=== PATIENT | male | born 1950 | race Caucasian/White ===

== ENCOUNTER 2018-04-21 09:50 | Emergency (ER) | payer MEDICARE, OTHER ==
[2018-04-21] MEDS ORDERED: PIPERACILLIN/TAZOBACTAM 3.375 GM VIAL IV ONE ×2 (10:26→13:15)
[2018-04-21] MEDS ORDERED: DIPH/PERTUSS(ACELL)/TETANUS VAC/PF 0.5 ML SYR (>=10YO) IM ONE ×2 (10:27→13:15)
[2018-04-21 11:51] LABS: ABSOLUTE BASOPHILS # (AUTO) 0.1 10^3/uL (0.0-0.2); ABSOLUTE EOSINOPHILS # (AUTO) 0.1 10^3/uL (0.0-0.6); ABSOLUTE LYMPHOCYTES (AUTO) 1.7 10^3/uL (0.5-4.7); ABSOLUTE MONOCYTES (AUTO) 1.2 10^3/uL (0.1-1.4); ABSOLUTE NEUT (AUTO) 8.6 10^3/uL (1.7-8.2); BASOPHILS % (AUTO) 0.5 % (0-2); EOSINOPHILS % (AUTO) 1.2 % (0-6); HEMATOCRIT 40.9 % (37.9-51.0); HEMOGLOBIN 13.7 g/dL (13.5-17.0); LYMPHOCYTES % (AUTO) 14.9 % (13-45); MEAN CORPUSCULAR HEMOGLOBIN 29.8 pg (27.0-33.4); MEAN CORPUSCULAR HGB CONC 33.6 g/dL (32.0-36.0); MEAN CORPUSCULAR VOLUME 89 fl (80-97); PLATELET COUNT 230 10^3/uL (150-450); RED BLOOD COUNT 4.62 10^6/uL (4.35-5.55); RED CELL DISTRIBUTION WIDTH 13.7 % (11.5-14.0); SEGMENTED NEUTROPHILS % (AUTO) 73.4 % (42-78); TOTAL CELLS COUNTED % (AUTO) 100 %; WHITE BLOOD COUNT 11.7 10^3/uL (4.0-10.5)
[2018-04-21] MEDS ORDERED: VANCOMYCIN HCL INJ 1000 MG VIAL IV ONE (13:26)
--- NOTE | 2018-04-21 13:28 | ER Document Report ---
ED General - General Chief Complaint: Wound Infection Stated Complaint: FINGER LACERATION Time Seen by Provider: 04/21/18 10:25 TRAVEL OUTSIDE OF THE [place] IN LAST 30 DAYS: No - HPI Notes: Patient is a 68-year-old male that presents to the emergency department for chief complaint of left hand infection. Patient states 5 days ago he was his dogs and cut his left hand. He is not sure if he got caught on a dog's tooth or the collar. He has not had any issues until last night when he noticed some swelling on his left hand. Today he noticed redness around the area. He denies any drainage from the wound. He is a diabetic and states his blood glucose has been running in the 200s. He denies any fevers or chills. He is unsure of his last tetanus vaccination. Past Medical History: Diabetes Past Surgical History: Reviewed in chart Social History: Reviewed in chart Family History: Reviewed and noncontributory for presenting illness Allergies: Reviewed, see documented allergy list. REVIEW OF SYSTEMS: CONSTITUTIONAL : No fever No chills No diaphoresis No recent illness EENT: No vision changes No congestion No sore throat CARDIOVASCULAR: No chest pain No palpitations RESPIRATORY: No shortness of breath No cough No difficulty breathing GASTROINTESTINAL: No abdominal pain No nausea No vomiting No diarrhea GENITOURINARY: No dysuria No hematuria No difficulty urinating MUSCULOSKELETAL: No back pain No leg pain No arm pain SKIN: No rashes Hand laceration LYMPHATIC: No swollen, enlarged glands. NEUROLOGICAL: No lightheadedness No headache No weakness No paresthesias PSYCHIATRIC: No anxiety No depression PHYSICAL EXAMINATION: Vital signs reviewed, nursing noted reviewed. GENERAL: Well-appearing, well-nourished and in no acute distress. HEAD: Atraumatic, normocephalic. EYES: Eyes appear normal, extraocular movements intact, sclera anicteric, conjunctiva are normal. ENT: nares patent, oropharynx clear without exudates. Moist mucous membranes. NECK: Normal range of motion, supple without lymphadenopathy LUNGS: Breath sounds clear to auscultation bilaterally and equal. No wheezes rales or rhonchi. HEART: Regular rate and rhythm without murmurs ABDOMEN: Soft, nontender, normoactive bowel sounds. No rebound, guarding, or rigidity. No masses appreciated. EXTREMITIES: Nontender, good range of motion, no pitting or edema. NEUROLOGICAL: No focal neurological deficits. Moves all extremities spontaneously Motor and sensory grossly intact on exam. PSYCH: Normal mood, normal affect. SKIN: Warm, Dry, normal turgor. Full-thickness angular laceration on the palmar surface of the proximal third digit on the left hand measuring about 2.5 cm in total length. Some wound gapping, no active bleeding. Erythema and edema to left hand with no lymphatic streaking to left forearm - Related Data Allergies/Adverse Reactions: ibuprofen Adverse Reaction (Verified 04/21/18 10:26) Past Medical History - Social History Smoking Status: Never Smoker Chew tobacco use (# tins/day): No Frequency of alcohol use: None Drug Abuse: None Family History: Reviewed & Not Pertinent Patient has suicidal ideation: No Patient has homicidal ideation: No Renal/ Medical History: Denies: Hx Peritoneal Dialysis Physical Exam - Vital signs Vitals: Temp Pulse Resp BP Pulse Ox 98.1 F 85 16 114/65 97 04/21/18 09:58 04/21/18 09:58 04/21/18 09:58 04/21/18 09:58 04/21/18 09:58 Course - Re-evaluation Re-evalutation: 04/21/18 13:32 Vitals reviewed. Nursing notes reviewed. Patient is not meeting sepsis criteria. He received a dose of Zosyn in the emergency room for his left hand infection. He has no signs of flexor tenosynovitis. The laceration occurred 5 days ago and although there is some wound gapping there is no active bleeding and stitches are not indicated. the area of erythema and edema is localized to around his third and fourth MCP joint and there is no lymphatic streaking. He will be started on Augmentin at home for his left hand infection. He was counseled on tight glucose control while healing from the infection. He was counseled on wound care. He will return to the emergency room for any increased redness, swelling, fevers, chills or lymphatic streaking. He will follow with his primary care in the next few days for close wound reevaluation. Discharged home in stable condition. Laboratory 04/21/18 04/21/18 11:07 11:07 WBC 11.7 H RBC 4.62 Hgb 13.7 Hct 40.9 MCV 89 MCH 29.8 MCHC 33.6 RDW 13.7 Plt Count 230 Seg Neutrophils % 73.4 Lymphocytes % 14.9 Monocytes % 10.0 Eosinophils % 1.2 Basophils % 0.5 Absolute Neutrophils 8.6 H Absolute Lymphocytes 1.7 Absolute Monocytes 1.2 Absolute Eosinophils 0.1 Absolute Basophils 0.1 Sodium Cancelled Potassium Cancelled Chloride Cancelled Carbon Dioxide Cancelled Anion Gap Cancelled BUN Cancelled Creatinine Cancelled Est GFR ( Amer) Cancelled Est GFR (Non-Af Amer) Cancelled Glucose Cancelled Calcium Cancelled Total Bilirubin Cancelled Direct Bilirubin Cancelled Neonat Total Bilirubin Cancelled Neonat Direct Bilirubin Cancelled Neonat Indirect Bili Cancelled AST Cancelled ALT Cancelled Alkaline Phosphatase Cancelled Total Protein Cancelled Albumin Cancelled 04/21/18 13:33 - Vital Signs Vital signs: Temp Pulse Resp BP Pulse Ox 98.1 F 85 18 114/65 97 04/21/18 09:58 04/21/18 09:58 04/21/18 10:16 04/21/18 09:58 04/21/18 09:58 - Laboratory Result Diagrams: 04/21/18 11:07 04/21/18 11:07 Laboratory results interpreted by me: 04/21/18 11:07 WBC 11.7 H Absolute Neutrophils 8.6 H Discharge - Discharge Clinical Impression: Laceration of hand with infection Qualifiers: Encounter type: initial encounter Laterality: left Qualified Code(s): S61.412A - Laceration without foreign body of left hand, initial encounter Condition: Stable Disposition: HOME, SELF-CARE Instructions: Antibiotic Ointment Protection (OM), Laceration Care (OM), Soap Cleansing (OM), Tetanus Immunization Given ([facility]) Additional Instructions: Please return to the emergency department if you have any worsening, or concern of your symptoms. Please return to the emergency department if you develop chest pain, difficulty breathing, severe abdominal pain, or ongoing vomiting. Please follow-up with your primary care physician in 2-3 days and any other recommended physicians. If prescribed, take all medications as directed. If you have any questions or concerns do not hesitate to return the emergency department for evaluation. Monitor your diet closely to improve your glucose while you are healing from your infection. If the area on your left hand becomes more red, swollen or has increased pain and drainage return to the emergency room. Prescriptions: Amox Tr/Potassium Clavulanate [Augmentin 839-125 Tablet] 1 tab PO BID 10 Days tablet Referrals: SYLVIA REYEZ MD [Primary Care Provider] - Follow up in 3-5 days
[2018-04-21 13:49] LABS: ALANINE AMINOTRANSFERASE 33 U/L (21-72); ALBUMIN 4.9 g/dL (3.5-5.0); ALKALINE PHOSPHATASE 89 U/L (38-126); ANION GAP 15 (5-19); ASPARTATE AMINO TRANSFERASE 30 U/L (17-59); BILIRUBIN,DIRECT 0.1 mg/dL (0.0-0.4); BILIRUBIN,TOTAL 0.7 mg/dL (0.2-1.3); BLOOD UREA NITROGEN 10 mg/dL (7-20); CALCIUM 10.4 mg/dL (8.4-10.2); CARBON DIOXIDE 28 mmol/L (22-30); CHLORIDE 98 mmol/L (98-107); GLUCOSE 167 mg/dL (75-110); POTASSIUM 4.5 mmol/L (3.6-5.0); SODIUM 140.7 mmol/L (137-145); TOTAL PROTEIN 7.8 g/dL (6.3-8.2)
[2018-04-21 14:41] VITALS: BP 121/69
== END 2018-04-21 14:25 | disposition home or self-care (01) ==
LOC: ER 09:50
DX: S61.412A Laceration without foreign body of left hand, initial encounter (principal); M79.89 Other specified soft tissue disorders; W54.0XXA Bitten by dog, initial encounter
CPT/HCPCS: 99283; 90471; 96374; 36415; 85025; 80053; 90715; J2543

== ENCOUNTER 2018-06-20 22:55 | Emergency (ER) | payer MEDICARE ==
--- NOTE | 2018-06-21 01:53 | RADIOLOGY REPORT (SQ) ---
EXAM DESCRIPTION: XR ABDOMEN SUPINE AND ERECT WITH CHEST (ABD ACUTE SERIES) COMPLETED DATE/TME: 06/20/2018 00:00 CLINICAL HISTORY: 68 years Male, abd/constipation Comparison: None. NUMBER OF VIEWS/TECHNIQUE: 3 LIMITATIONS: None. FINDINGS: Intestinal gas pattern is within normal limits. Paucity of bowel gas. No suspicious calcification. Grossly intact skeletal structures. No acute cardiopulmonary findings. IMPRESSION: No acute findings.
--- NOTE | 2018-06-21 02:54 | ER Document Report ---
ED General - General Chief Complaint: Chest Pain Stated Complaint: CHEST PAIN/LEFT SIDE PAIN Time Seen by Provider: 06/21/18 02:52 Primary Care Provider: SYLVIA REYEZ MD [Primary Care Provider] - Follow up as needed Notes: Patient is a 68-year-old male presents with complaint of abdominal pain. Initially says it is mostly in the suprapubic region and then he says later is also on the left side of his abdomen. He says is been there for 3 weeks. He states that very few bowel movements he feels is very constipated. Says he feels very nauseous. He has not been vomiting but has been burping a lot. Chief complaint mention something about chest pain however the patient says he does not actually have pain in his chest. Says all in the abdomen itself. Does have history of diabetes. He does have history of partial colon resection due to previous infection and perforation. He denies any blood in his stool. He said he did go to the drugstore today and bought a clear bottle of a laxative. He said he drank the whole thing. Since then he has felt worse. TRAVEL OUTSIDE OF THE [place] IN LAST 30 DAYS: No - Related Data Allergies/Adverse Reactions: ibuprofen Adverse Reaction (Verified 04/21/18 10:26) Past Medical History - Social History Smoking Status: Unknown if Ever Smoked Frequency of alcohol use: None Drug Abuse: None Family History: Reviewed & Not Pertinent Renal/ Medical History: Denies: Hx Peritoneal Dialysis Review of Systems - Review of Systems Notes: My Normal Review Basic REVIEW OF SYSTEMS: CONSTITUTIONAL : Denies fever, chills, or sweats. Denies recent illness. EENT: Denies eye, ear, throat, or mouth pain or symptoms. Denies nasal or sinus congestion. CARDIOVASCULAR: Denies chest pain. RESPIRATORY: Denies cough, cold, or chest congestion. Denies shortness of al th, difficulty breathing, or wheezing. GASTROINTESTINAL: No pain. Nausea. GENITOURINARY: Patient feels as if he cannot fully empty his bladder. He said this is a chronic problem he has been dealing with for years. MUSCULOSKELETAL: Denies neck or back pain or joint pain or swelling. SKIN: Denies rash or skin lesions. NEUROLOGICAL: Denies altered mental status or loss of consciousness. Denies headache. Denies weakness or paralysis or loss of use of either side. Denies problems with gait or speech. Denies sensory or motor loss. ALL OTHER SYSTEMS REVIEWED AND NEGATIVE. Physical Exam - Vital signs Vitals: Temp Pulse Resp BP Pulse Ox 97.8 F 86 22 H 129/74 H 100 06/20/18 23:47 06/20/18 23:47 06/20/18 23:47 06/20/18 23:47 06/20/18 23:47 - Notes Notes: General Appearance: Well nourished, alert, cooperative, no acute distress, moderate obvious discomfort. Anxious appearing. Vitals: reviewed, See vital signs table. Head: no swelling or tenderness to the head Eyes: PERRL, EOMI, Conjuctiva clear Mouth: No decreasd moisture Lungs: No wheezing, No rales, No rhonci, No accessory muscle use, good air exchange bilaterally. Heart: Normal rate, Regular rythm, No murmur, no rub Abdomen: Normal BS, soft, No rigidity, tenderness palpation in the suprapubic re gion. No tenderness palpation of right-sided abdomen. Some tenderness in the left upper quadrant. Abdomen is soft. It is little bit distended. Extremities: strength 5/5 in all extremities, good pulses in all extremities, no swelling or tenderness in the extremities, no edema. Skin: warm, dry, appropriate color, no rash Neuro: speech clear, oriented x 3, normal affect, responds appropriately to questions. Course - Re-evaluation Re-evalutation: 06/21/18 06:05 Patient did get an enema. He did have a large bowel movement. He says his abdominal distention is gone down quite a bit however he says he still feels nauseous and does not feel back to normal. He still has some pain in left upper quadrant. Patient's laboratory evaluation is completely unremarkable however the patient still appears very anxious and says that he does not feel 100% back to normal. Being his age and previous surgical history thinks prep to go forth CT scan to make sure it is not anything more acutely life-threatening be going on. Abdomen remains soft. There is no peritoneal signs. 06/21/18 07:15 CT scan has been performed. Radiologist has not read it. Patient does not want to wait for radiologist. He says he wants to go home. I informed him that if the CAT scan shows something bad then he should be here. I informed him that th e 10 minutes for scan results to come back. Patient says he wants to sign out AGAINST MEDICAL ADVICE. I will still give him his prescriptions and discharge instructions. I informed him that I want what is best for him. I informed him I would call him with the CT scan results. I informed him the importance of following up with his primary care doctor on Saturday. I told both him and his that he should return to ER immediately if he worsens in any way. Dictation of this chart was performed using voice recognition software; therefore, there may be some unintended grammatical errors. - Vital Signs Vital signs: Temp Pulse Resp BP Pulse Ox 97.8 F 86 22 H 129/74 H 100 06/20/18 23:47 06/20/18 23:47 06/20/18 23:47 06/20/18 23:47 06/20/18 23:47 - Laboratory Result Diagrams: 06/21/18 04:16 06/21/18 04:16 Laboratory results interpreted by me: 06/21/18 06/21/18 04:16 06:13 Sodium 134.6 L Chloride 97 L Glucose 198 H Urine Glucose (UA) >=500 H Urine Ketones 80 H - EKG Interpretation by Me Additional EKG results interpreted by me: 06/21/18 02:53 EKG is reviewed and interpreted by me. EKG shows sinus rhythm with a rate of [address] segment elevation. No ST segment depression. Patient is a small Q waves in leads I and aVL. RI interval, QRS duration, QT intervals are within normal range. No old EKG available for comparison. 06/21/18 02:54 Discharge - Discharge Clinical Impression: Nausea Abdominal pain Qualifiers: Abdominal location: unspecified location Qualified Code(s): R10.9 - Unspecified abdominal pain Condition: Stable Disposition: AGAINST MEDICAL ADVICE Additional Instructions: That cause of your abdominal pain is not 100% clear. It could be related to constipation however it is difficult to tell this just based on workup at this time. You are requesting to leave against medical advice. We do not recommend against this as we want to wait for the results of CT scan. Despite this will still call you with results. I want you to have a low threshold to return to ER immediately if you have worsening pain, vomiting, fevers, or feel that you are worsening in any way. Please drink clear liquids. Please follow-up closely with your doctor on Saturday. Prescriptions: Dicyclomine HCl [Bentyl 20 mg Tablet] 20 mg PO QID #20 tablet Docusate Sodium [Colace] 100 mg PO BID #14 capsule Ondansetron [Zofran Odt 4 mg Tablet] 1 tab PO Q4H PRN #15 tab.rapdis PRN Reason: For Nausea/Vomiting Referrals: SYLVIA REYEZ MD [Primary Care Provider] - Follow up as needed
[2018-06-21] MEDS ORDERED: NORMAL SALINE 500 ML IV ONE ×2 (03:57→05:54)
[2018-06-21] MEDS ORDERED: DICYCLOMINE HCL INJ 20 MG/2 ML AMPULE IM ONE (03:57)
[2018-06-21] MEDS ORDERED: MINERAL OIL 30 ML UDCUP PR ONE (03:58)
[2018-06-21 04:31] LABS: ABSOLUTE LYMPHOCYTES (AUTO) 0.9 10^3/uL (0.5-4.7); ABSOLUTE MONOCYTES (AUTO) 0.7 10^3/uL (0.1-1.4); ABSOLUTE NEUT (AUTO) 4.8 10^3/uL (1.7-8.2); BASOPHILS % (AUTO) 0.6 % (0-2); EOSINOPHILS % (AUTO) 0.1 % (0-6); HEMATOCRIT 40.5 % (37.9-51.0); HEMOGLOBIN 14.1 g/dL (13.5-17.0); LYMPHOCYTES % (AUTO) 14.4 % (13-45); MEAN CORPUSCULAR HEMOGLOBIN 30.5 pg (27.0-33.4); MEAN CORPUSCULAR HGB CONC 34.8 g/dL (32.0-36.0); MEAN CORPUSCULAR VOLUME 87 fl (80-97); PLATELET COUNT 191 10^3/uL (150-450); RED BLOOD COUNT 4.64 10^6/uL (4.35-5.55); RED CELL DISTRIBUTION WIDTH 13.6 % (11.5-14.0); SEGMENTED NEUTROPHILS % (AUTO) 73.9 % (42-78); TOTAL CELLS COUNTED % (AUTO) 100 %; WHITE BLOOD COUNT 6.4 10^3/uL (4.0-10.5)
[2018-06-21 04:56] LABS: ALANINE AMINOTRANSFERASE 51 U/L (21-72); ALBUMIN 4.8 g/dL (3.5-5.0); ALKALINE PHOSPHATASE 90 U/L (38-126); ANION GAP 15 (5-19); ASPARTATE AMINO TRANSFERASE 59 U/L (17-59); BILIRUBIN,DIRECT 0.4 mg/dL (0.0-0.4); BILIRUBIN,TOTAL 1.2 mg/dL (0.2-1.3); BLOOD UREA NITROGEN 13 mg/dL (7-20); CALCIUM 9.8 mg/dL (8.4-10.2); CARBON DIOXIDE 23 mmol/L (22-30); CHLORIDE 97 mmol/L (98-107); GLUCOSE 198 mg/dL (75-110); LIPASE 131.1 U/L (23-300); POTASSIUM 4.5 mmol/L (3.6-5.0); SODIUM 134.6 mmol/L (137-145); TOTAL PROTEIN 7.4 g/dL (6.3-8.2)
[2018-06-21] MEDS ORDERED: PROMETHAZINE HCL INJ 25 MG/1 ML VIAL IM ONE (05:54)
[2018-06-21 06:26] LABS: APPEARANCE,URINE CLEAR; BILIRUBIN,URINE NEGATIVE (NEGATIVE); COLOR,URINE YELLOW; GLUCOSE, URINE >=500 mg/dL (NEGATIVE); KETONES,URINE 80 mg/dL (NEGATIVE); LEUKOCYTE ESTERASE,URINE NEGATIVE (NEGATIVE); NITRITE,URINE NEGATIVE (NEGATIVE); PROTEIN,URINE NEGATIVE (NEGATIVE); UROBILINOGEN,URINE NEGATIVE mg/dL (<2.0)
[2018-06-21 07:27] VITALS: BP 131/71
--- NOTE | 2018-06-21 07:28 | RADIOLOGY REPORT (SQ) ---
EXAM DESCRIPTION: CT ABDOMEN PELVIS WITH IV CONTRAST COMPLETED DATE/TME: 06/21/2018 05:53 CLINICAL HISTORY: 68 years Male, left sided abdominal pain Comparison: None. Technique: IV contrast. Coronal and sagittal reformat. This exam was performed according to our departmental dose-optimization program, which includes automated exposure control, adjustment of the mA and/or kV according to patient size and/or use of iterative reconstruction technique. [facility]: Dose Right [facility]: CareDose [facility]: Dose Right [facility]: Teradose 4D [facility]: Bait[place]hi LIMITATIONS: None Findings: No ascites. Atherosclerotic vascular disease. Suture at the sigmoid consistent with reported history of partial colon resection. Bilateral perinephric fat stranding, nonspecific. Renal scar/atrophy. Small fluid retention at the transverse colon. Colonic diverticulosis.Normal appendix. No gross evidence of gallbladder inflammation or hepatobiliary obstruction. No bowel obstruction. No hydronephrosis or hydroureter. No renal/ureteral stone. Inferior thorax, liver, gallbladder, pancreas, spleen, adrenals, renal system, gastrointestinal tract, pelvic organs, lymphatics, vasculature, and musculoskeleton appear otherwise unremarkable. IMPRESSION: No acute findings.
--- NOTE | 2018-06-21 08:50 | EKG REPORT ---
SEVERITY:- ABNORMAL ECG - SINUS RHYTHM LEFT ANTERIOR FASCICULAR BLOCK PROBABLE ANTEROSEPTAL INFARCT, OLD : Confirmed by: Gautam Peck MD 21-Jun-2018 08:50:08
== END 2018-06-21 07:24 | disposition left against medical advice (07) ==
LOC: ER 22:55
DX: R11.0 Nausea (principal); R07.9 Chest pain, unspecified; R10.9 Unspecified abdominal pain
CPT/HCPCS: 93005; 99284; 36415; 83690; 85025; 80053; 81001; 84484; 74022; 74177; 93010; J0500; J3490; J2550; J7040

== ENCOUNTER 2018-07-26 23:03 | Emergency (ER) | payer MEDICARE ==
[2018-07-26] MEDS ORDERED: ONDANSETRON HCL INJ/PF 4 MG/2 ML SDV IV ONE (23:55)
[2018-07-26] MEDS ORDERED: NORMAL SALINE 1000 ML 1,000 ML IV ONE (23:56)
[2018-07-27 00:03] LABS: ABSOLUTE EOSINOPHILS # (AUTO) 0.1 10^3/uL (0.0-0.6); ABSOLUTE LYMPHOCYTES (AUTO) 1.9 10^3/uL (0.5-4.7); ABSOLUTE MONOCYTES (AUTO) 0.9 10^3/uL (0.1-1.4); ABSOLUTE NEUT (AUTO) 7.3 10^3/uL (1.7-8.2); BASOPHILS % (AUTO) 0.4 % (0-2); EOSINOPHILS % (AUTO) 0.9 % (0-6); HEMATOCRIT 41.9 % (37.9-51.0); HEMOGLOBIN 14.6 g/dL (13.5-17.0); LYMPHOCYTES % (AUTO) 18.2 % (13-45); MEAN CORPUSCULAR HEMOGLOBIN 30.3 pg (27.0-33.4); MEAN CORPUSCULAR HGB CONC 34.8 g/dL (32.0-36.0); MEAN CORPUSCULAR VOLUME 87 fl (80-97); PLATELET COUNT 224 10^3/uL (150-450); RED BLOOD COUNT 4.81 10^6/uL (4.35-5.55); RED CELL DISTRIBUTION WIDTH 13.9 % (11.5-14.0); SEGMENTED NEUTROPHILS % (AUTO) 71.5 % (42-78); TOTAL CELLS COUNTED % (AUTO) 100 %; WHITE BLOOD COUNT 10.2 10^3/uL (4.0-10.5)
[2018-07-27 00:15] LABS: ALANINE AMINOTRANSFERASE 47 U/L (21-72); ALKALINE PHOSPHATASE 128 U/L (38-126); ANION GAP 15 (5-19); ASPARTATE AMINO TRANSFERASE 41 U/L (17-59); BILIRUBIN,DIRECT 0.2 mg/dL (0.0-0.4); BILIRUBIN,TOTAL 0.7 mg/dL (0.2-1.3); BLOOD UREA NITROGEN 8 mg/dL (7-20); CALCIUM 10.5 mg/dL (8.4-10.2); CARBON DIOXIDE 22 mmol/L (22-30); CHLORIDE 99 mmol/L (98-107); GLUCOSE 176 mg/dL (75-110); LIPASE 169.2 U/L (23-300); POTASSIUM 3.6 mmol/L (3.6-5.0); SODIUM 136.2 mmol/L (137-145); TOTAL PROTEIN 7.9 g/dL (6.3-8.2)
[2018-07-27] MEDS ORDERED: LORAZEPAM INJ 2 MG/1 ML VIAL IV ONE (00:15)
[2018-07-27] MEDS ORDERED: FAMOTIDINE INJ/PF 20 MG/2 ML SDV IV ONE (00:15)
[2018-07-27] MEDS ORDERED: METOCLOPRAMIDE HCL ORAL SOLN 10 MG/10 ML UDCUP PO ONE (00:18)
[2018-07-27] MEDS ORDERED: LIDOCAINE 2% VISCOUS SOLN 20 ML UDCUP PO ONE (00:18)
[2018-07-27] MEDS ORDERED: MAG HYDROX/AL HYDROX/SIMETH SUSP 30 ML UDCUP PO ONE (00:18)
[2018-07-27] MEDS: MORPHINE SULFATE 10 MG/ML INJ IV PRN ×2 (00:20→01:51)
--- NOTE | 2018-07-27 00:20 | ER Document Report ---
ED General - General Chief Complaint: Abdominal Pain Stated Complaint: ABDOMINAL PAIN Time Seen by Provider: 07/26/18 23:20 Primary Care Provider: SYLVIA REYEZ MD [Primary Care Provider] - Follow up as needed Notes: Patient is a 68-year-old male with past medical history of narcotic dependence, prior partial colectomy, hypertension, presents with nausea, vomiting, abdominal cramping and diarrhea that started earlier today. Patient describes his abdominal pain as being a generalized, cramping, aching abdominal pain. Nothing seems to improve or worsen his symptoms. Denies a history of similar symptoms in the past although was seen in be very under similar circumstances. Has not seen his primary care physician regarding today's concerns. Denies fever or constitutional symptoms. Has not had hematemesis, melena or hematochezia. TRAVEL OUTSIDE OF THE [place] IN LAST 30 DAYS: No - HPI Onset: This morning Onset/Duration: Gradual Quality of pain: Achy Severity: Moderate Pain Level: 3 Associated symptoms: Nausea, Vomiting Exacerbated by: Denies Relieved by: Denies Similar symptoms previously: No Recently seen / treated by doctor: No - Related Data Allergies/Adverse Reactions: ibuprofen Adverse Reaction (Verified 07/26/18 23:07) Past Medical History - General Information source: Patient - Social History Smoking Status: Former Smoker Chew tobacco use (# tins/day): No Frequency of alcohol use: None Drug Abuse: None, Prescription drugs Lives with: Spouse/Significant other Family History: Reviewed & Not Pertinent Patient has suicidal ideation: No Patient has homicidal ideation: No - Past Medical History Cardiac Medical History: Reports: Hx Hypertension Renal/ Medical History: Denies: Hx Peritoneal Dialysis Past Surgical History: Reports: Hx Abdominal Surgery - colon resection Review of Systems - Review of Systems Notes: Constitutional: Negative for fever. HENT: Negative for sore throat. Eyes: Negative for visual changes. Cardiovascular: Negative for chest pain. Respiratory: Negative for shortness of breath. Gastrointestinal: Positive for abdominal pain, nausea and vomiting. Positive diarrhea. Genitourinary: Negative for dysuria. Musculoskeletal: Negative for back pain. Skin: Negative for rash. Neurological: Negative for headaches, weakness or numbness. 10 point ROS negative except as marked above and in HPI. Physical Exam - Vital signs Vitals: Temp Pulse Resp BP Pulse Ox 97.7 F 108 H 28 H 186/82 H 100 07/26/18 23:09 07/26/18 23:09 07/26/18 23:09 07/26/18 23:09 07/26/18 23:09 Interpretation: Hypertensive, Tachycardic, Tachypneic Notes: PHYSICAL EXAMINATION: GENERAL: Appears uncomfortable, quite anxious HEAD: Atraumatic, normocephalic. EYES: Pupils equal round and reactive to light, extraocular movements intact, sclera anicteric, conjunctiva are normal. ENT: nares patent, oropharynx clear without exudates. Mildly dry mucous membranes. NECK: Normal range of motion, supple without lymphadenopathy LUNGS: Breath sounds clear to auscultation bilaterally and equal. No wheezes rales or rhonchi. HEART: Regular tachycardia without murmurs ABDOMEN: Soft, mild epigastric abdominal tenderness to palpation, no other localized areas of tenderness, normoactive bowel sounds. No guarding, no rebound. No masses appreciated. EXTREMITIES: Normal range of motion, no pitting or edema. No cyanosis. NEUROLOGICAL: No focal neurological deficits. Moves all extremities spontaneously and on command. PSYCH: Normal mood, normal affect. SKIN: Warm, Dry, normal turgor, no rashes or lesions noted. Course - Re-evaluation Re-evalutation: 07/27/18 00:18 Patient presents complaining of 24 hours of diffuse abdominal pain, nausea, vomiting, states he feels like there is a "gel capsule" stuck in his throat after vomiting repeatedly. Patient states that he feels very unwell, making me to do something to make him feel better. He is highly anxious, rolling around in the bed, tells me not to put the bed rail up because "I will if you put that up". Labs noted to be completely unremarkable. Patient was seen here approximate 1 month ago for the same, had a reassuring evaluation at that time. Patient has a history of partial colonic resection from perforation, given his report of severe abdominal pain, will proceed with CT imaging of the abdomen and pelvis otherwise abdominal exam the only area of localized abdominal tenderness is to the epigastrium and I suspect that this is more likely a reflux esophagitis type picture than something more serious at this point. 07/27/18 01:56 CT scan of the abdomen and pelvis is unremarkable. Patient's labs likewise unremarkable. The nurse in the room has just disclosed to me that the patient revealed to her that he has run out of his narcotics early, is supposed to have been through the 11th ran out on the 8th and he apparently fills them in [place]. An acute narcotic withdrawal picture would make complete sense in this context given the patient's tachycardia, hypertension, nausea, vomiting, tremulousness and anxiety. I am not willing to refill the patient's narcotic prescription particular given that he did not disclose this to me initially. Given his reassuring workup, vitals that have improved. At this time will discharge with return precautions and follow-up recommendations. Verbal di prasadrge instructions given a the bedside and opportunity for questions given. Medication warnings reviewed. Patient is in agreement with this plan and has verbalized understanding of return precautions and the need for primary care follow-up in the next 24-72 hours. - Vital Signs Vital signs: Temp Pulse Resp BP Pulse Ox 97.4 F 108 H 23 H 185/120 H 98 07/27/18 00:07 07/26/18 23:09 07/27/18 01:01 07/27/18 01:01 07/27/18 01:01 - Laboratory Result Diagrams: 07/26/18 23:50 07/26/18 23:50 Laboratory results interpreted by me: 07/26/18 07/27/18 23:50 00:22 Sodium 136.2 L Glucose 176 H Calcium 10.5 H Alkaline Phosphatase 128 H Urine Glucose (UA) >=500 H Urine Ketones 20 H - Diagnostic Test Radiology reviewed: Reports reviewed - EKG Interpretation by Me Additional EKG results interpreted by me: 07/27/18 01:55 Sinus tachycardia, rate 107. No ST elevations or depressions. LAF. QTC 459. Discharge - Discharge Clinical Impression: Epigastric abdominal pain, Generalized abdominal pain, Narcotic withdrawal Nausea and vomiting Qualifiers: Vomiting type: unspecified Vomiting Intractability: non-intractable Qualified Code(s): R11.2 - Nausea with vomiting, unspecified Condition: Good Disposition: HOME, SELF-CARE Additional Instructions: Your symptoms appear to be most consistent with stomach or upper intestinal irritation. They could alternatively be due to narcotic withdrawal. Please begin taking famotidine 40 mg in the morning and 40 mg at night. Take Carafate prior to meals. Your CT scan and labs are otherwise reassuring today. please return to emergency department immediately if you have worsening of your pain, shortness of breath, vomiting, become unable to exert yourself due to pain or difficulty breathing, you pass out, or have any pain that radiates into your arms, jaw, or back. Please also return if you have any additional symptoms that are concerning to you. Prescriptions: Famotidine 40 mg PO BID #60 tablet Sucralfate [Carafate 1 gm Tablet] 1 gm PO ACHS #120 tablet Referrals: SYLVIA REYEZ MD [Primary Care Provider] - Follow up tomorrow
[2018-07-27 01:11] LABS: APPEARANCE,URINE SLIGHTLY-CLOUDY; BILIRUBIN,URINE NEGATIVE (NEGATIVE); COLOR,URINE YELLOW; GLUCOSE, URINE >=500 mg/dL (NEGATIVE); KETONES,URINE 20 mg/dL (NEGATIVE); LEUKOCYTE ESTERASE,URINE NEGATIVE (NEGATIVE); NITRITE,URINE NEGATIVE (NEGATIVE); PROTEIN,URINE NEGATIVE (NEGATIVE); URINE SPECIFIC GRAVITY 1.012; UROBILINOGEN,URINE NEGATIVE mg/dL (<2.0)
--- NOTE | 2018-07-27 01:34 | RADIOLOGY REPORT (SQ) ---
EXAM DESCRIPTION: CT ABDOMEN PELVIS WITH IV CONTRAST COMPLETED DATE/TME: 07/27/2018 00:17 CLINICAL HISTORY: 68 years, Male, abdominal pain, vomiting COMPARISON: 2-19 CT TECHNIQUE: 442 Images stored on PACS. All CT scanners at this facility use dose modulation, iterative reconstruction, and/or weight based dosing when appropriate to reduce radiation dose to as low as reasonably achievable (ALARA). [facility]: Dose Right [facility]: CareDose [facility]: Dose Right [facility]: Teradose 4D [facility]: [employer] LIMITATIONS: None. FINDINGS: The visualized lung bases are unremarkable. Small hiatal hernia. Osseous structures are grossly intact. Fatty infiltrative change to the liver. The spleen, adrenal glands, pancreas, kidneys are unremarkable. The gallbladder is present. No evidence for bowel obstruction. Surgical clips in the right lower quadrant likely reflect prior appendectomy. What may be a residual normal-appearing appendiceal stump noted. Mild atheromatous change. No free air or free fluid. Occasional sigmoid diverticuli without CT evidence for diverticulitis. IMPRESSION: Negative for acute intra-abdominal/pelvic process. Fatty infiltrative change to the liver. Mild sigmoid diverticulosis without CT evidence for diverticulitis. TECHNICAL DOCUMENTATION: Quality ID # 436: Final reports with documentation of one or more dose reduction techniques (e.g., Automated exposure control, adjustment of the mA and/or kV according to patient size, use of iterative reconstruction technique) copyright 2011 [employer]- All Rights Reserved
[2018-07-27] MEDS ORDERED: ONDANSETRON ODT 4 MG TAB (6 TAB/ER DISP) PO PRN (01:55)
[2018-07-27 03:42] VITALS: BP 180/100
--- NOTE | 2018-07-27 12:30 | EKG REPORT ---
SEVERITY:- ABNORMAL ECG - SINUS TACHYCARDIA LEFT ANTERIOR FASCICULAR BLOCK ABNRM R PROG, CONSIDER ASMI OR LEAD PLACEMENT : Confirmed by: Donna Woodson MD 27-Jul-2018 12:29:13
== END 2018-07-27 03:43 | disposition home or self-care (01) ==
LOC: ER 23:03
DX: F19.939 Other psychoactive substance use, unspecified with withdrawal, unspecified (principal); R10.84 Generalized abdominal pain; R11.2 Nausea with vomiting, unspecified; R10.816 Epigastric abdominal tenderness; R19.7 Diarrhea, unspecified; F41.9 Anxiety disorder, unspecified; R09.89 Other specified symptoms and signs involving the circulatory and respiratory systems; I10 Essential (primary) hypertension; R00.0 Tachycardia, unspecified; R06.82 Tachypnea, not elsewhere classified; Z90.49 Acquired absence of other specified parts of digestive tract; Z87.891 Personal history of nicotine dependence
CPT/HCPCS: 93005; 99284; 96361; 96374; 96375; 36415; 83690; 85025; 80053; 81001; 84484; 74177; 93010; J3490; A9270 ×2; J2270; J2060; J2405; J7030; S0028

== ENCOUNTER 2018-07-29 10:49 | Emergency (ER) | payer MEDICARE, MEDICAID ==
[2018-07-29] MEDS ORDERED: DIPHENHYDRAMINE HCL 50 MG/ML VIAL IV ONE (11:08)
[2018-07-29] MEDS ORDERED: HALOPERIDOL LACTATE INJ 5 MG/1 ML VIAL IV ONE (11:09)
[2018-07-29] MEDS ORDERED: NORMAL SALINE 1000 ML 1,000 ML IV ONE (11:09)
--- NOTE | 2018-07-29 11:11 | ER Document Report ---
ED Medical Screen (RME) - General Chief Complaint: Abdominal Pain Stated Complaint: ABDOMINAL PAIN Time Seen by Provider: 07/29/18 11:01 Primary Care Provider: SYLVIA REYEZ MD [Primary Care Provider] - Follow up as needed Mode of Arrival: Wheelchair Information source: Patient Notes: 68-year-old male presents with complaint of nausea, vomiting and abdominal pain. Patient was recently seen for similar symptoms and had a completely normal workup. Please see copy and pasted note from previous provider. 07/27/18- CT scan of the abdomen and pelvis is unremarkable. Patient's labs likewise unremarkable. The nurse in the room has just disclosed to me that the patient revealed to her that he has run out of his narcotics early, is supposed to have been through the th ran out on the and he apparently fills them in [place]. An acute narcotic withdrawal picture would make complete sense in this context given the patient's tachycardia, hypertension, nausea, vomiting, tremulousness and anxiety. I am not willing to refill the patient's narcotic prescription particular given that he did not disclose this to me initially. Given his reassuring workup, vitals that have improved. At this time will discharge with return precautions and follow-up recommendations. Verbal discharge instructions given a the bedside and opportunity for questions given. Medication warnings reviewed. Patient is in agreement with this plan and has verbalized understanding of return precautions and the need for primary care follow-up in the next 24-72 hours. I have greeted and performed a rapid initial assessment of this patient. A comprehensive ED assessment and evaluation of the patient, analysis of test results and completion of medical decision making process we will be contacted by additional ED providers. PHYSICAL EXAMINATION: Vital signs reviewed-hypertension GENERAL: Moderate distress, dry heaving, appears to be in pain LUNGS: No respiratory distress Musculoskeletal: Normal range of motion NEUROLOGICAL: Normal speech, normal gait. PSYCH: Normal mood, normal affect. SKIN: Warm, Dry, normal turgor, no rashes or lesions noted. TRAVEL OUTSIDE OF THE [place] IN LAST 30 DAYS: No - HPI Onset: Other Onset/Duration: Persistent Quality of pain: Stabbing Severity: Moderate Associated Symptoms: Abdominal pain, Nausea Exacerbated by: Denies Relieved by: Denies Similar symptoms previously: Yes Recently seen / treated by doctor: Yes - 2 days prior to arrival - Related Data Smoking: Cigarettes Frequency of alcohol use: None Drug Abuse: Prescription drugs Allergies/Adverse Reactions: ibuprofen Adverse Reaction (Verified 07/29/18 10:50) Past Medical History - Social History Frequency of alcohol use: None Drug Abuse: None - Past Medical History Cardiac Medical History: Reports: Hx Hypertension Endocrine Medical History: Reports: Hx Diabetes Mellitus Type 2 Renal/ Medical History: Denies: Hx Peritoneal Dialysis Past Surgical History: Reports: Hx Abdominal Surgery - colon resection Physical Exam - Vital signs Vitals: Temp Pulse Resp BP Pulse Ox 97.8 F 97 20 162/96 H 98 07/29/18 10:54 07/29/18 10:54 07/29/18 10:54 07/29/18 10:54 07/29/18 10:54 Course - Vital Signs Vital signs: Temp Pulse Resp BP Pulse Ox 97.8 F 97 20 162/96 H 98 07/29/18 10:54 07/29/18 10:54 07/29/18 10:54 07/29/18 10:54 07/29/18 10:54 Doctor's Discharge - Discharge Referrals: SYLVIA REYEZ MD [Primary Care Provider] - Follow up as needed
[2018-07-29 12:09] LABS: ABSOLUTE BASOPHILS # (AUTO) 0.1 10^3/uL (0.0-0.2); ABSOLUTE LYMPHOCYTES (AUTO) 1.9 10^3/uL (0.5-4.7); ABSOLUTE MONOCYTES (AUTO) 1.9 10^3/uL (0.1-1.4); ABSOLUTE NEUT (AUTO) 11.8 10^3/uL (1.7-8.2); BASOPHILS % (AUTO) 0.4 % (0-2); EOSINOPHILS % (AUTO) 0.3 % (0-6); HEMATOCRIT 45.1 % (37.9-51.0); HEMOGLOBIN 15.6 g/dL (13.5-17.0); LYMPHOCYTES % (AUTO) 12.1 % (13-45); MEAN CORPUSCULAR HEMOGLOBIN 30.1 pg (27.0-33.4); MEAN CORPUSCULAR HGB CONC 34.6 g/dL (32.0-36.0); MEAN CORPUSCULAR VOLUME 87 fl (80-97); MONOCYTES % (AUTO) 12.1 % (3-13); PLATELET COUNT 279 10^3/uL (150-450); RED BLOOD COUNT 5.19 10^6/uL (4.35-5.55); RED CELL DISTRIBUTION WIDTH 13.6 % (11.5-14.0); SEGMENTED NEUTROPHILS % (AUTO) 75.1 % (42-78); TOTAL CELLS COUNTED % (AUTO) 100 %; WHITE BLOOD COUNT 15.7 10^3/uL (4.0-10.5)
[2018-07-29 12:31] LABS: ALANINE AMINOTRANSFERASE 45 U/L (21-72); ALBUMIN 5.1 g/dL (3.5-5.0); ALKALINE PHOSPHATASE 126 U/L (38-126); ANION GAP 17 (5-19); ASPARTATE AMINO TRANSFERASE 57 U/L (17-59); BILIRUBIN,DIRECT 0.3 mg/dL (0.0-0.4); BILIRUBIN,TOTAL 1.1 mg/dL (0.2-1.3); BLOOD UREA NITROGEN 13 mg/dL (7-20); CALCIUM 10.7 mg/dL (8.4-10.2); CARBON DIOXIDE 21 mmol/L (22-30); CHLORIDE 96 mmol/L (98-107); GLUCOSE 222 mg/dL (75-110); LIPASE 94.6 U/L (23-300); POTASSIUM 3.5 mmol/L (3.6-5.0); SODIUM 133.8 mmol/L (137-145)
[2018-07-29 13:45] LABS: APPEARANCE,URINE CLEAR; BILIRUBIN,URINE NEGATIVE (NEGATIVE); COLOR,URINE STRAW; GLUCOSE, URINE >=500 mg/dL (NEGATIVE); KETONES,URINE 80 mg/dL (NEGATIVE); LEUKOCYTE ESTERASE,URINE NEGATIVE (NEGATIVE); NITRITE,URINE NEGATIVE (NEGATIVE); PROTEIN,URINE NEGATIVE (NEGATIVE); URINE SPECIFIC GRAVITY 1.009; UROBILINOGEN,URINE NEGATIVE mg/dL (<2.0)
[2018-07-29] MEDS ORDERED: MORPHINE SULFATE 10 MG/ML INJ IV ONE (14:42)
--- NOTE | 2018-07-29 15:52 | RADIOLOGY REPORT (SQ) ---
EXAM DESCRIPTION: CT ABD/PELVIS WITH IV ORAL COMPLETED DATE/TIME: 07/29/2018 3:27 pm REASON FOR STUDY: Abdominal pain, leukocytosis. Hx partial colectom COMPARISON: CT abdomen pelvis 07/27/2018, 06/21/2018 TECHNIQUE: CT scan of the abdomen and pelvis performed using helical scanning technique with dynamic intravenous contrast injection. No oral contrast. Images reviewed with lung, soft tissue, and bone windows. Reconstructed coronal and sagittal MPR images reviewed. Delayed images for evaluation of the urinary system also acquired. All images stored on PACS. All CT scanners at this facility use dose modulation, iterative reconstruction, and/or weight based d osing when appropriate to reduce radiation dose to as low as reasonably achievable (ALARA). [facility]: Dose Right [facility]: CareDose [facility]: Dose Right [facility]: Teradose 4D [facility]: [employer] CONTRAST TYPE AND DOSE: contrast/concentration: Isovue 350.00 mg/ml; Total Contrast Delivered: 100.0 ml; Total Saline Delivered: 41.8 ml RENAL FUNCTION: Creatinine 0.7 RADIATION DOSE: CT Rad equipment meets quality standard of care and radiation dose reduction techniq ues were employed. CTDIvol: 12.0 - 16.3 mGy. DLP: 1631 mGy-cm.. LIMITATIONS: None. FINDINGS: LOWER CHEST: Lung bases are clear. Small hiatal hernia LIVER: Normal size. No masses. No dilated ducts. SPLEEN: Normal size. No focal lesions. PANCREAS: No masses. No significant calcifications. No adjacent inflammation or peripancreatic fluid collections. Pancreatic duct not dilated. GALLBLADDER: No identified stones by CT criteria. No inflammatory changes to suggest cholecystitis. ADRENAL GLANDS: No significant masses or asymmetry. RIGHT KIDNEY AND URETER: No solid masses. No significant calcifications. No hydronephrosis or hyd roureter. LEFT KIDNEY AND URETER: No solid masses. No significant calcifications. No hydronephrosis or hydr oureter. AORTA AND VESSELS: No aneurysm. No dissection. Renal arteries, SMA, celiac without stenosis. Duplica argenis IVC, an anatomic variant. RETROPERITONEUM: No retroperitoneal adenopathy, hemorrhage or masses. BOWEL AND PERITONEAL CAVITY: Patient drank oral contrast. No CT evidence of bowel obstruction or asia e intraperitoneal air or fluid. Rectosigmoid anastomotic sadie post partial sigmoid colectomy. Fe w scattered colonic diverticuli without CT signs of acute diverticulitis. APPENDIX: Normal. PELVIS: No mass. No free fluid. Normal bladder. ABDOMINAL WALL: Fat containing left inguinal hernia BONES: No significant or acute findings. OTHER: No other significant finding. IMPRESSION: NO SIGNIFICANT OR ACUTE FINDING IN THE ABDOMEN OR PELVIS ON CT SCAN WITH IV CONTRAST. TECHNICAL DOCUMENTATION: JOB ID: [id number] Quality ID # 436: Final reports with documentation of one or more dose reduction techniques (e.g., Au tomated exposure control, adjustment of the mA and/or kV according to patient size, use of iterative reconstruction technique) 2010 [employer]- All Rights Reserved Reading location - IP/workstation name: [email or web address]
[2018-07-29] MEDS ORDERED: ONDANSETRON HCL INJ/PF 4 MG/2 ML SDV IV ONE (16:21)
[2018-07-29] MEDS ORDERED: CEFTRIAXONE 1 GM/D5W RTU 1 GM/50 ML RTUPB IV ONE (17:29)
--- NOTE | 2018-07-29 18:16 | ER Document Report ---
ED General - General Chief Complaint: Abdominal Pain Stated Complaint: ABDOMINAL PAIN Time Seen by Provider: 07/29/18 11:01 Primary Care Provider: SYLVIA REYEZ MD [Primary Care Provider] - Follow up as needed Mode of Arrival: Wheelchair Notes: Patient is here for abdominal pain and feeling bloated and "blown up". Says he has pressure all over his abdomen. He was seen here 3 days ago for the same complaint and had a complete workup with essentially normal labs and a normal CT scan of the abdomen and pelvis with IV contrast he has a history of partial colectomy for diverticulitis in the past. Has never had a colostomy bag. Patient says he is also had some vomiting and feels dehydrated. When he was seen here 3 days ago, there was concerned that the patient might have been having withdrawal symptoms because he had run out of his Percocet pain pills that he is been taking for the past 20 years. He says that he was able to get his prescription filled since he was discharged from here in his taking those pills and they are not helping his pain. He had another similar episode to this abdominal pain in June of this year and again the workup was normal at that time. Patient says he feels dehydrated. Has not had any fever. Patient has a history of insulin-dependent diabetes, hypertension, chronic pain. Also suffers from anxiety and stress. TRAVEL OUTSIDE OF THE [place] IN LAST 30 DAYS: No - Related Data Allergies/Adverse Reactions: ibuprofen Adverse Reaction (Verified 07/29/18 10:50) Past Medical History - General Information source: Patient - Social History Smoking Status: Never Smoker Frequency of alcohol use: None Drug Abuse: None Family History: Reviewed & Not Pertinent Patient has suicidal ideation: No Patient has homicidal ideation: No - Past Medical History Cardiac Medical History: Reports: Hx Hypertension Endocrine Medical History: Reports: Hx Diabetes Mellitus Type 1, Hx Diabetes Mellitus Type 2 Past Surgical History: Reports: Hx Abdominal Surgery - colon resection Review of Systems - Review of Systems Notes: REVIEW OF SYSTEMS: CONSTITUTIONAL : Denies fever. EENT: Denies eye, ear, nose or mouth or throat pain or other symptoms. CARDIOVASCULAR: Denies chest pain. RESPIRATORY: Denies cough, chest congestion, or shortness of breath. GASTROINTESTINAL: See HPI. GENITOURINARY: Denies difficulty or painful urinating, urinary frequency, blood in urine. MUSCULOSKELETAL: Denies back or neck pain. Denies joint pain or swelling. SKIN: Denies rash or skin lesions. NEUROLOGICAL: Denies LOC or altered mental status. Denies headache. Denies sensory loss or motor deficits. ALL OTHER SYSTEMS REVIEWED AND NEGATIVE. Physical Exam - Vital signs Vitals: Temp Pulse Resp BP Pulse Ox 97.8 F 97 20 162/96 H 98 07/29/18 10:54 07/29/18 10:54 07/29/18 10:54 07/29/18 10:54 07/29/18 10:54 Interpretation: Normal Notes: PHYSICAL EXAMINATION: GENERAL: Well-appearing, in no acute distress. Anxious. Does not appear to be in is much pain as he was in HEAD: Atraumatic, normocephalic. EYES: Pupils equal round and reactive to light, extraocular movements intact. ENT: oropharynx clear without exudates. Moist mucous membranes. NECK: Normal range of motion, supple. LUNGS: Breath sounds clear and equal bilaterally. HEART: Regular rate and rhythm without murmurs. ABDOMEN: Soft, minimal tenderness over entire abdomen. No localized pain. No guarding or rebound. No masses. BACK: No tenderness throughout entire back. EXTREMITIES: Normal range of motion without pain. NEUROLOGICAL: Normal speech, normal gait. Normal sensory, motor, and reflex exams. Awake, alert, and oriented x3. Cranial nerves normal. PSYCH: Normal mood, normal affect. SKIN: Warm, dry, no rashes. Course - Re-evaluation Re-evalutation: 07/29/18 20:20 Patient's WBC came back elevated at about 15,000. For that reason, I felt the patient required another CT scan with oral contrast and that was ordered. It came back as showing nothing significant. I am not sure exactly what is causing the patient's recurrent, intermittent abdominal pain. He does have a history of diverticulitis and on the CT scan 3 days ago it was noted that he has diverticulosis. For that, along with the elevated WBC count, I feel that treatment with antibiotics for colitis would be reasonable. - Vital Signs Vital signs: Temp Pulse Resp BP Pulse Ox 98.4 F 111 H 18 163/84 H 100 07/29/18 18:24 07/29/18 18:24 07/29/18 18:24 07/29/18 18:24 07/29/18 18:24 - Laboratory Result Diagrams: 07/29/18 11:38 07/29/18 11:38 Laboratory results interpreted by me: 07/29/18 07/29/18 07/29/18 11:38 11:38 11:38 WBC 15.7 H Lymphocytes % 12.1 L Absolute Neutrophils 11.8 H Absolute Monocytes 1.9 H Sodium 133.8 L Potassium 3.5 L Chloride 96 L Carbon Dioxide 21 L Glucose 222 H Lactic Acid 2.3 H Calcium 10.7 H Albumin 5.1 H Urine Glucose (UA) Urine Ketones 07/29/18 13:13 WBC Lymphocytes % Absolute Neutrophils Absolute Monocytes Sodium Potassium Chloride Carbon Dioxide Glucose Lactic Acid Calcium Albumin Urine Glucose (UA) >=500 H Urine Ketones 80 H - Diagnostic Test Radiology reviewed: Image reviewed, Reports reviewed - CT scan with oral and IV contrast showed no Discharge - Discharge Clinical Impression: Abdominal pain, Vomiting Condition: Stable Disposition: HOME, SELF-CARE Additional Instructions: ABDOMINAL PAIN: There are many causes of abdominal pain. Pain can mean a serious problem requiring surgery (such as appendicitis). It can also be an innocent problem that goes away on its own (such as a viral infection). Often, time must pass to determine the cause of pain. The physician does not feel that hospitalization is necessary, at present. Things may change within the next 24 hours. Call the doctor or come back for re-examination if any problems occur, such as: (1) Pain that becomes more severe, steady, or becomes concentrated in one specific area. Also, pain that is more severe with movement or coughing. (2) Vomiting that persists or becomes more frequent. (3) Blood in the vomitus, urine, or bowel movements. Blood in the stool may have a tarry or black appearance. (4) Shaking chills or fever greater than 100 degrees F. (5) The abdomen becomes more distended or swollen. (6) Bowel movements cease. (7) Failure to improve as expected. NORMAL EXAM AND WORKUP: At this time, except for your elevated white cell count, and some minor abnormalities with your electrolytes and blood sugar, your examination and workup show no significant abnormality. No significant abnormal physical findings are noted. All laboratory, EKG, and imaging (x-ray, CT scans, ultrasound) studies that were ordered show no significant abnormality. Although your examination and all studies that were ordered showed no significant abnormal finding, there are no examinations and no studies that are 100% accurate. There is always the possibility that some abnormality could exist and not be detected with physical examination or within the limits and capabilities of laboratory and other studies. You should return or follow up as you were instructed on your visit today for further evaluation if your symptoms do not resolve. PAIN MEDICATION INJECTION: You have received an injection of a pain medication. You should experience significant pain relief within 45 minutes. This drug is a narcotic -- it will impair your judgement, slow your reaction time and make you sleepy (as well as relieve your pain). Narcotics also can cause nausea. You should not drive, work with machinery, or perform any task requiring mental alertness until all effects of the medication are gone -- six to eight hours. Do not take any alcohol, or sedatives, and do not take any other medi cation without checking with your physician. Take your own pain medication, Vicodin. ANTINAUSEA MEDICATION: You have been given a medication to suppress nausea and vomiting. This type of medication can be given as a shot, pill, or suppository. It will usually last for many hours. Pills and shots usually last six to eight hours, suppositories last about 12 hours. For the typical illness, only one or two doses of the medication may be necessary. Mild lightheadedness may occur. This type of medicine can cause drowsiness. Do not drive or operate dangerous machinery while under its influence. Do not mix with alcohol. See your doctor at once if you have muscle spasms or tightness, or uncontrollable motions (particularly of the neck, mouth, or jaw). Persistent vomiting or severe lightheadedness should also be evaluated by the physician. On your previous CT scan of your abdomen a few days ago, you were noted to have diverticulosis but not diverticulitis. You might have some diverticulitis that does not show on the CT scan or you could have a condition called Colitis. Colitis is an inflammatory disease of the large intestine which affects the lining of the bowel. The cause is uncertain, though it is often caused by an infection. In some cases, the symptoms resolve and can return again in the future. Colitis is characterized by abdominal pain, often nausea and vomiting, and either diarrhea or difficulty with bowel movements. Sometimes blood will be present in the bowel movements. Fever is often present as well. Milder cases of colitis can be managed as an outpatient with medications for nausea and vomiting and pain, oral fluid therapy, and perhaps antibiotics, if a bacterial origin is suspected. Antidiarrhea medicine should usually be avoided in colitis. If you have increasing abdominal pain, repeated vomiting, fever, rectal bleeding, or worsening diarrhea, you should return for re-evaluation. Rocephin You have been given an injection of an antibiotic called Rocephin (ceftriaxone). Sometimes the injection must be combined with antibiotic pills. For some infections, such as an uncomplicated ear infection, Rocephin provides all the antibiotic that's needed. The antibiotic will be in your body for about two days. For serious infections, we usually repeat doses of Rocephin daily. Side effects are very unusual following a shot. Women may develop vaginal yeast infections, and babies can get yeast (thrush) in the mouth following the use of antibiotics. Contact your physician if you have symptoms with this medication. Allergy to this antibiotic can result in hives, wheezing, faintness, or itching. If symptoms of allergy occur, call the doctor at once. Ciprofloxacin You have been given an antibacterial agent, ciprofloxacin (Cipro). This medicine is not related to the penicillins, sulfas, cephalosporins, or tetracyclines. It is often given to patients who are allergic to these drugs. It has been chosen for you either because other drugs are not appropriate, or because of the nature of your problem. Cipro should not be taken with antacids, as these can decrease its effectiveness. It can be taken without regard to meals. CIPRO SHOULD NOT BE TAKEN BY CHILDREN, NURSING WOMEN, OR WOMEN. Although Cipro is usually well-tolerated, common side effects can include nausea and diarrhea. Contact your doctor if you experience any unusual symptoms while on this medication, such as joint pain or swelling, shortness of breath, wheezing, faintness, or hives. Metronidazole Metronidazole (Flagyl) has been prescribed. This medication is used to kill a type of bacteria called anaerobes, and protozoan parasites such as trichomonas and Giardia. Flagyl often causes a metallic taste in the mouth and mild nausea. Do not use alcohol in any form with Flagyl (including alcohol in medication elixirs). Flagyl interacts with alcohol to cause flushing, palpitations, headache, stomach cramps, and vomiting. Do not use Flagyl if you are taking Antabuse (disulfiram). Call the doctor at once if you develop rash, shortness of breath, itching, or lightheadedness. FOLLOW-UP CARE: If you have been referred to a physician for follow-up care, call the physicians office for an appointment as you were instructed or within the next two days. If you experience worsening or a significant change in your symptoms, notify the physician immediately or return to the Emergency Department at any time for re-evaluation. If you have new or worsening symptoms, return at any time for reevaluation. If you have persistent vomiting that cannot be controlled with the nausea medicine, if you have a fever, if your abdominal pain worsens, return for us to reevaluate your condition. With the treatment that I am recommending, you should be feeling no worse tomorrow and better 2 days from now, on . If you are not progressing on schedule like that, return for us to reevaluate your abdomen. Prescriptions: Ciprofloxacin HCl [Cipro 500 mg Tablet] 500 mg PO BID #14 tablet Metronidazole [Flagyl 500 mg Tablet] 500 mg PO BID #14 tablet Ondansetron [Zofran Odt 4 mg Tablet] 1 - 2 tab PO Q4H PRN #15 tab.rapdis PRN Reason: For Nausea/Vomiting Referrals: SYLVIA REYEZ MD [Primary Care Provider] - Follow up as needed
[2018-07-29 18:29] VITALS: BP 163/84
== END 2018-07-29 18:29 | disposition home or self-care (01) ==
LOC: ER 10:49
DX: R10.9 Unspecified abdominal pain (principal); R11.10 Vomiting, unspecified; Z93.3 Colostomy status; E11.9 Type 2 diabetes mellitus without complications; I10 Essential (primary) hypertension; Z79.4 Long term (current) use of insulin
CPT/HCPCS: 99284; 96361; 96375; 96365; 36415; 87040; 83690; 85025; 87077; 80053; 81001; 83605; 74177; J1200; J1630; J2405; J7030; J0696

== ENCOUNTER 2019-10-18 15:54 | Inpatient (IN) | payer MEDICARE, MEDICAID ==
--- NOTE | 2019-10-18 16:12 | ER Document Report ---
ED Medical Screen (RME) - General Chief Complaint: Foot Injury Stated Complaint: RIGHT FOOT PAIN/OPEN SORE/DRAINAGE Time Seen by Provider: 10/18/19 16:01 Primary Care Provider: SYLVIA REYEZ MD [Primary Care Provider] - Follow up as needed Mode of Arrival: Wheelchair Information source: Patient Notes: 69-year-old male patient presents the emergency department with concern for redness, pain and swelling to his right foot. Patient reports 8 days ago he had a laceration/abrasion to the right foot on the lateral side. He states he got his foot caught up in a dog chain. He went to see his primary care provider where they put him on Bactrim, Keflex and Toradol but he states that the pain, swelling and inflammation are getting worse. He had a tetanus shot 2 years ago. Erythema and swelling noted to right foot. I have greeted and performed a rapid initial assessment of this patient. A comprehensive ED assessment and evaluation of the patient, analysis of test results and completion of the medical decision making process will be conducted by additional ED providers. I have specifically instructed the patient or family members with the patient to immediately return to any nursing staff should anything change in the patient's condition or with their chief complaint. TRAVEL OUTSIDE OF THE [place] IN LAST 30 DAYS: No - Related Data Allergies/Adverse Reactions: ibuprofen Adverse Reaction (Verified 07/29/18 10:50) Past Medical History - Past Medical History Cardiac Medical History: Reports: Hx Hypertension Endocrine Medical History: Reports: Hx Diabetes Mellitus Type 1, Hx Diabetes Bessie litus Type 2 Renal/ Medical History: Denies: Hx Peritoneal Dialysis Past Surgical History: Reports: Hx Abdominal Surgery - colon resection Physical Exam - Vital signs Vitals: Temp Pulse Resp BP Pulse Ox 98.4 F 98 16 108/74 97 10/18/19 16:10/18/19 16:10/18/19 16:01 10/18/19 16:01 10/18/19 16:01 Course - Vital Signs Vital signs: Temp Pulse Resp BP Pulse Ox 98.4 F 98 16 108/74 97 10/18/19 16:01 10/18/19 16:01 10/18/19 16:01 10/18/19 16:01 10/18/19 16:01 Doctor's Discharge - Discharge Referrals: SYLVIA REYEZ MD [Primary Care Provider] - Follow up as needed
--- NOTE | 2019-10-18 16:49 | RADIOLOGY REPORT (SQ) ---
EXAM DESCRIPTION: FOOT RIGHT COMPLETE IMAGES COMPLETED DATE/TIME: 10/18/2019 4:31 pm REASON FOR STUDY: pain/swelling/infection COMPARISON: None. EXAM PARAMETERS: NUMBER OF VIEWS: Three views. TECHNIQUE: AP, lateral and oblique radiographic images acquired of the right foot. LIMITATIONS: None. FINDINGS: MINERALIZATION: Normal. BONES: No acute fracture or dislocation. No worrisome bone lesions. JOINTS: No effusion. SOFT TISSUES: No significant soft tissue swelling. No radiopaque foreign body. OTHER: No other significant finding. IMPRESSION: No acute findings. TECHNICAL DOCUMENTATION: JOB ID: [id number] 2010 [employer]- All Rights Reserved Reading location - IP/workstation name: [email or web address]
[2019-10-18 16:53] LABS: ABSOLUTE EOSINOPHILS # (AUTO) 0.2 10^3/uL (0.0-0.6); ABSOLUTE LYMPHOCYTES (AUTO) 1.4 10^3/uL (0.5-4.7); ABSOLUTE MONOCYTES (AUTO) 0.9 10^3/uL (0.1-1.4); ABSOLUTE NEUT (AUTO) 7.4 10^3/uL (1.7-8.2); BASOPHILS % (AUTO) 0.4 % (0-2); HEMATOCRIT 33.7 % (37.9-51.0); HEMOGLOBIN 11.7 g/dL (13.5-17.0); LYMPHOCYTES % (AUTO) 14.2 % (13-45); MEAN CORPUSCULAR HGB CONC 34.7 g/dL (32.0-36.0); MEAN CORPUSCULAR VOLUME 89 fl (80-97); MONOCYTES % (AUTO) 9.2 % (3-13); PLATELET COUNT 313 10^3/uL (150-450); RED BLOOD COUNT 3.77 10^6/uL (4.35-5.55); RED CELL DISTRIBUTION WIDTH 13.7 % (11.5-14.0); SEGMENTED NEUTROPHILS % (AUTO) 74.2 % (42-78); TOTAL CELLS COUNTED % (AUTO) 100 %
[2019-10-18] MEDS ORDERED: VANCOMYCIN HCL INJ 1000 MG VIAL IV ONE (17:06)
[2019-10-18 17:18] LABS: ALBUMIN 3.6 g/dL (3.5-5.0); ALKALINE PHOSPHATASE 70 U/L (38-126); ANION GAP 10 (5-19); ASPARTATE AMINO TRANSFERASE 25 U/L (17-59); BILIRUBIN,TOTAL 0.3 mg/dL (0.2-1.3); BLOOD UREA NITROGEN 18 mg/dL (7-20); CALCIUM 8.7 mg/dL (8.4-10.2); CARBON DIOXIDE 24 mmol/L (22-30); CHLORIDE 93 mmol/L (98-107); GLUCOSE 209 mg/dL (75-110); POTASSIUM 5.5 mmol/L (3.6-5.0); TOTAL PROTEIN 6.5 g/dL (6.3-8.2)
[2019-10-18 17:30] LABS: C-REACTIVE PROTEIN 158.7 mg/L (<10.0)
[2019-10-18 17:32] LABS: ERYTHROCYTE SEDIMENTATION RATE 98 mm/hr (0-20)
--- NOTE | 2019-10-18 17:48 | ER Document Report ---
ED General - General Chief Complaint: Skin Problem Stated Complaint: RIGHT FOOT PAIN/OPEN SORE/DRAINAGE Time Seen by Provider: 10/18/19 16:01 Mode of Arrival: Wheelchair TRAVEL OUTSIDE OF THE [place] IN LAST 30 DAYS: No - HPI Notes: 69-year-old male history of diabetes presents with approximately 8 days of worsening right foot wound. Patient scraped foot with chain 8 days ago and then within 24 hours noticed worsening redness swelling around the area. Went to urgent care and had x-rays and was started on antibiotics, has been on Bactrim Keflex for at least several days without any improvement in his symptoms. Patient says pain has been worsening and now feels like he cannot walk on foot. Patient denies fever, nausea vomiting, prior osteo, other injuries. Tdap updated within the past 3 years. - Related Data Allergies/Adverse Reactions: diphenhydramine [From Benadryl] Adverse Reaction (Unknown, Verified 10/20/19 02:56) ibuprofen Adverse Reaction (Verified 07/29/18 10:50) Home Medications: bactrim Past Medical History - General Information source: Patient - Social History Smoking Status: Never Smoker Chew tobacco use (# tins/day): No Frequency of alcohol use: None Drug Abuse: None Family History: Reviewed & Not Pertinent Patient has homicidal ideation: No - Past Medical History Cardiac Medical History: Reports: Hx Hypertension Endocrine Medical History: Reports: Hx Diabetes Mellitus Type 1, Hx Diabetes Mellitus Type 2 Renal/ Medical History: Denies: Hx Peritoneal Dialysis Past Surgical History: Reports: Hx Abdominal Surgery - colon resection Review of Systems - Review of Systems Notes: REVIEW OF SYSTEMS: CONSTITUTIONAL : Denies fever, chills, or sweats. EENT: Denies recent cold/sinus symptoms, denies throat pain CARDIOVASCULAR: Denies chest pain, RESPIRATORY: Denies cough, denies shortness of breath. GASTROINTESTINAL: Denies abdominal pain, nausea/vomiting. GENITOURINARY: Denies difficulty urinating, painful urination. MUSCULOSKELETAL: Denies neck pain, back pain. SKIN: +rash +skin lesions. HEMATOLOGIC : Denies easy bruising or bleeding. LYMPHATIC: Denies swollen, enlarged glands. NEUROLOGICAL: Denies headache, denies change in gait. PSYCHIATRIC: Denies anxiety or stress or depression. Physical Exam - Vital signs Vitals: Temp Pulse Resp BP Pulse Ox 98.4 F 98 16 108/74 97 10/18/19 16:01 10/18/19 16:01 10/18/19 16:01 10/18/19 16:01 10/18/19 16:01 - Notes Notes: PHYSICAL EXAMINATION: GENERAL: Well-appearing, well-nourished and in no acute distress. HEAD: Atraumatic, normocephalic. EYES: Pupils equal round and appropriate constriction, sclera anicteric, conjunctiva are normal. ENT: nares patent, moist mucous membranes. NECK: Normal range of motion, supple without lymphadenopathy LUNGS: Breath sounds clear to auscultation bilaterally and equal. No wheezes rales or rhonchi. HEART: Regular rate and rhythm, systolic ejection murmur loudest at upper left sternal border ABDOMEN: Soft, nontender, no guarding, no masses EXTREMITIES: Normal range of motion, No cyanosis, DP pulses 2+, area of redness edema warmth over entire dorsum of right foot extending to lateral right ankle with area over lateral right malleolus of approximately 1 cm skin open with scant fibrinous purulent drainage NEUROLOGICAL: Awake, alert, conversing appropriately, moves all extremities spontaneously. PSYCH: Normal mood, normal affect. SKIN: Warm, Dry, normal turgor. Course - Re-evaluation Re-evalutation: 10/18/19 17:53 Patient has failed trial of outpatient antibiotics, given extent of cellulitis and history of diabetes will give iv vancomycin and admit r/o osteo. Pt very well appearing, no signs of systemic infection. 10/18/19 18:14 Discussed case with hospitalist Dr. Seals, asked to come see the patient before I put an admission order. - Vital Signs Vital signs: Temp Pulse Resp BP Pulse Ox 97.3 F 88 17 116/52 L 100 10/20/19 00:11 10/20/19 00:11 10/20/19 00:11 10/20/19 00:11 10/20/19 00:11 - Laboratory Result Diagrams: 10/19/19 06:57 10/19/19 06:57 Laboratory results interpreted by me: 10/18/19 10/18/19 16:43 16:43 RBC 3.77 L Hgb 11.7 L Hct 33.7 L ESR 98 H Sodium 127.1 L Potassium 5.5 H Chloride 93 L Glucose 209 H C-Reactive Protein 158.7 H Discharge - Discharge Clinical Impression: Cellulitis of right foot, Insulin dependent diabetes mellitus Condition: Fair Disposition: ADMITTED INPATIENT Admitting Provider: Bozena (Hospitalist) Unit Admitted: Medical Floor
[2019-10-18] MEDS ORDERED: NORMAL SALINE 1000 ML 1,000 ML IV ONE (17:56)
[2019-10-18] MEDS ORDERED: GLUCAGON,HUMAN RECOMB 1 MG INJ IM PRN (18:39)
[2019-10-18] MEDS ORDERED: DEXTROSE 40% GEL 15 GM TUBE PO PRN ×2 (18:39)
[2019-10-18] MEDS ORDERED: DEXTROSE 50%-WATER 25 GM/50 ML DISP.SYRIN IV PRN ×2 (18:39)
[2019-10-18] MEDS ORDERED: VANCOMYCIN HCL 0 MG in DEXTROSE 5%-WATER 250 ML IV NR (18:45)
--- NOTE | 2019-10-18 18:51 | PDOC H&P ---
History of Present Illness Admission Date/PCP: SYLVIA REYEZ MD History of Present Illness: ADAM KWOK JR is a 69 year old male with a history of insulin-dependent diabetes and hypertension who presents with right foot pain and swelling. A little over a week ago his dog's leash got wrapped around his foot and it made a laceration over his right lateral malleolus. He began to have a lot of redness and swelling and so he went to urgent care where he was initially sent for x-rays. No fracture was found, and the wound was irrigated he said that they packed it as well. He was started on Bactrim. He said he went back the next day and got it repacked. He said somebody from [facility] was supposed to come up and look at it but he said whoever it was did not do anything to it. He came back in today because he has had some persistent drainage and the redness has worsened, as has the pain and erythema. He is not had any fevers. Past Medical History Cardiac Medical History: Reports: Hypertension Endocrine Medical History: Reports: Diabetes Mellitus Type 1, Diabetes Mellitus Type 2 Social History Smoking Status: Never Smoker Electronic Cigarette use?: No Family History Family History: Reviewed & Not Pertinent, DM, Hyperlipidemia, Hypertension Parental Family History Reviewed: Yes Children Family History Reviewed: Yes Sibling(s) Family History Reviewed.: Yes Medication/Allergy Home Medications: Amox Tr/Potassium Clavulanate [Augmentin 875-125 Tablet] 1 tab PO BID 10 Days tablet 04/21/18 Dicyclomine HCl [Bentyl 20 mg Tablet] 20 mg PO QID #20 tablet 06/21/18 Docusate Sodium [Colace] 100 mg PO BID #14 capsule 06/21/18 Ondansetron [Zofran Odt 4 mg Tablet] 1 tab PO Q4H PRN #15 tab.rapdis 06/21/18 Famotidine 40 mg PO BID #60 tablet 07/27/18 Sucralfate [Carafate 1 gm Tablet] 1 gm PO ACHS #120 tablet 07/27/18 Ciprofloxacin HCl [Cipro 500 mg Tablet] 500 mg PO BID #14 tablet 07/29/18 Metronidazole [Flagyl 500 mg Tablet] 500 mg PO BID #14 tablet 07/29/18 Ondansetron [Zofran Odt 4 mg Tablet] 1 - 2 tab PO Q4H PRN #15 tab.rapdis 07/29/18 Allergies/Adverse Reactions: ibuprofen Adverse Reaction (Verified 07/29/18 10:50) Review of Systems All systems: reviewed and no additional remarkable complaints except as stated - All systems were reviewed and were negative except as noted in the HPI Physical Exam Vital Signs: Temp Pulse Resp BP Pulse Ox 97.5 F 98 16 108/74 97 10/18/19 16:06 10/18/19 16:01 10/18/19 16:01 10/18/19 16:01 10/18/19 16:01 Intake & Output 10/17/19 10/18/19 10/19/19 06:59 06:59 06:59 Weight 90.718 kg General appearance: PRESENT: no acute distress, cooperative Head exam: PRESENT: atraumatic, normocephalic Eye exam: PRESENT: EOMI, PERRLA. ABSENT: conjunctival injection, nystagmus, scleral icterus Ear exam: PRESENT: normal external ear exam Mouth exam: PRESENT: moist, neck supple Throat exam: ABSENT: post pharyngeal erythema Neck exam: PRESENT: full ROM. ABSENT: carotid bruit, JVD, lymphadenopathy, meningismus, tenderness, thyromegaly Respiratory exam: PRESENT: clear to auscultation elsi, symmetrical, unlabored. ABSENT: accessory muscle use, chest wall tenderness, crackles, prolonged expiratory phas, rhonchi, tachypnea, wheezes Cardiovascular exam: PRESENT: RRR, +S1, +S2, systolic murmur Pulses: ABSENT: normal carotid pulses Vascular exam: ABSENT: normal capillary refill GI/Abdominal exam: PRESENT: normal bowel sounds, soft. ABSENT: distended, guarding, rebound, tenderness Extremities exam: PRESENT: pedal edema - Right foot, tenderness - Right foot. ABSENT: clubbing Musculoskeletal exam: PRESENT: normal inspection Neurological exam: PRESENT: alert, awake, oriented to person, oriented to place, oriented to time, oriented to situation, CN II-XII grossly intact. ABSENT: motor sensory deficit Psychiatric exam: PRESENT: appropriate affect, normal mood Skin exam: PRESENT: dry, warm, other - Ankle is erythematous, several centimeters proximal to the ankle as well as the dorsum of the foot. He has a 3 cm area of fluctuance immediately inferior to the lateral malleolus. He also has a 2 cm area of fluctuance on the dorsum of the foot immediately distal to the ankle joint Results Laboratory Results: 10/18/19 16:43 10/18/19 16:43 10/18/19 10/18/19 16:43 16:43 WBC 10.0 RBC 3.77 L Hgb 11.7 L Hct 33.7 L MCV 89 MCH 31.0 MCHC 34.7 RDW 13.7 Plt Count 313 Seg Neutrophils % 74.2 Sodium 127.1 L Potassium 5.5 H Chloride 93 L Carbon Dioxide 24 Anion Gap 10 BUN 18 Creatinine 1.12 Est GFR ( Amer) > 60 Glucose 209 H Calcium 8.7 Total Bilirubin 0.3 AST 25 Alkaline Phosphatase 70 C-Reactive Protein 158.7 H Total Protein 6.5 Albumin 3.6 Impressions: Foot X-Ray 10/18/19 16:09 IMPRESSION: No acute findings. Assessment and Plan - Diagnosis (1) Abscess of right foot Is this a current diagnosis for this admission?: Yes Plan: Ultrasound of the right foot is been ordered to rule out abscess. He has 2 caldera spicious areas. If the ultrasound is positive, will consult surgery for incision and drainage (2) Cellulitis of right foot Is this a current diagnosis for this admission?: Yes Plan: Vancomycin has been started. Blood cultures were obtained. We will try to capture some of the pus for culture. (3) Hyponatremia Is this a current diagnosis for this admission?: Yes Plan: He has been given some IV fluids. We will repeat his lab work-up in the morning. He is asymptomatic. (4) Insulin dependent diabetes mellitus Is this a current diagnosis for this admission?: Yes Plan: He takes Actos but he also takes Tresiba, he says on an as-needed basis. We will put him on a sliding scale for now. (5) Hypertension Qualifiers: Hypertension type: essential hypertension Qualified Code(s): I10 - Essential (primary) hypertension Is this a current diagnosis for this admission?: Yes Plan: He said he takes lisinopril at home. We will continue that. - Time Time Spent with patient: 35 or more minutes - Inpatient Certification Based on my medical assessment, after consideration of the patient's comorbiditi es, presenting symptoms, or acuity I expect that the services needed warrant INPATIENT care.: Yes I certify that my determination is in accordance with my understanding of [facility]'s requirements for reasonable and necessary INPATIENT services [42 CFR 412.3e].: Yes Medical Necessity: Failure to Improve With Outpatient Therapy, Need Close Monitoring Due to Risk of Patient Decompensation, Need For IV Fluids, Need for IV Antibiotics, Need for Surgery, Risk of Complication if Not Cared For in Hospital
[2019-10-18] MEDS: ACETAMINOPHEN 325 MG TABLET PO PRN (20:37)
[2019-10-18] MEDS ORDERED: VANCOMYCIN HCL INJ 1000 MG VIAL IV PRN (20:52)
--- NOTE | 2019-10-18 21:28 | RADIOLOGY REPORT (SQ) ---
EXAM DESCRIPTION: US EXTREMITY MUSCULOSKELETAL COMPLETED DATE/TME: 10/18/2019 00:00 CLINICAL HISTORY: 69 years Male right foot cellulitis, r/o abscess COMPARISON: None. TECHNIQUE: Real-time grayscale imaging performed to evaluate the right foot. FINDINGS: There is diffuse subcutaneous stranding and edema which may reflect cellulitis. Mild hyperemia is noted. No focal or drainable abscess is noted. IMPRESSION: Subcutaneous edema consistent with cellulitis without a focal abscess noted
[2019-10-18] MEDS: INSULIN LISPRO 100 UNIT/ML 3 ML VIAL SUBCUT SCH (22:22)
[2019-10-19] MEDS: ACETAMINOPHEN 325 MG TABLET PO PRN ×2 (00:26→21:51)
[2019-10-19] MEDS ORDERED: MORPHINE SULFATE 10 MG/ML INJ ONE (04:31)
[2019-10-19] MEDS: MORPHINE SULFATE 10 MG/ML INJ IV PRN ×5 (04:34→23:31)
[2019-10-19] MEDS ORDERED: VANCOMYCIN HCL 1,000 MG in DEXTROSE 5%-WATER 250 ML IV ONE (06:00)
[2019-10-19 07:30] LABS: HEMATOCRIT 31.9 % (37.9-51.0); MEAN CORPUSCULAR HEMOGLOBIN 30.9 pg (27.0-33.4); MEAN CORPUSCULAR HGB CONC 34.6 g/dL (32.0-36.0); MEAN CORPUSCULAR VOLUME 89 fl (80-97); PLATELET COUNT 282 10^3/uL (150-450); RED BLOOD COUNT 3.57 10^6/uL (4.35-5.55); RED CELL DISTRIBUTION WIDTH 13.9 % (11.5-14.0); WHITE BLOOD COUNT 7.5 10^3/uL (4.0-10.5)
[2019-10-19 07:56] LABS: ANION GAP 7 (5-19); BLOOD UREA NITROGEN 16 mg/dL (7-20); CALCIUM 9.2 mg/dL (8.4-10.2); CARBON DIOXIDE 26 mmol/L (22-30); CHLORIDE 100 mmol/L (98-107); GLUCOSE 151 mg/dL (75-110); POTASSIUM 4.8 mmol/L (3.6-5.0)
[2019-10-19] MEDS: INSULIN LISPRO 100 UNIT/ML 3 ML VIAL SUBCUT SCH ×4 (08:46→21:43)
--- NOTE | 2019-10-19 15:27 | PDOC PROGRESS REPORT ---
Subjective Progress Note for:: 10/19/19 Subjective:: No adverse events overnight. No new complaints. His foot still aches but is feeling better. No fevers. Swelling has gone down in his foot. Reason For Visit: RIGHT FOOT ABSCESS, CELLULITIS Physical Exam Vital Signs: Temp Pulse Resp BP Pulse Ox 98.2 F 69 18 118/66 92 10/19/19 11:51 10/19/19 11:51 10/19/19 11:51 10/19/19 11:51 10/19/19 11:51 Intake & Output 10/18/19 10/19/19 10/20/19 06:59 06:59 06:59 Intake Total 222 250 Output Total 2075 Balance -1853 250 Weight 89.6 kg General appearance: PRESENT: no acute distress, cooperative, disheveled Respiratory exam: PRESENT: clear to auscultation elsi, symmetrical, unlabored. ABSENT: accessory muscle use, chest wall tenderness, crackles, prolonged expiratory phas, rhonchi, tachypnea, wheezes Cardiovascular exam: PRESENT: RRR, +S1, +S2 Pulses: PRESENT: normal carotid pulses Vascular exam: PRESENT: normal capillary refill GI/Abdominal exam: PRESENT: normal bowel sounds, soft. ABSENT: distended, guarding, rebound, tenderness Extremities exam: PRESENT: other - Swelling and erythema in the right foot have decreased. He still has the 2 discrete areas of fluctuance, one on the dorsum of the right foot and the other immediately inferior to the lateral malleolus on the right, that they have decreased in size as well. ABSENT: clubbing, pedal edema Musculoskeletal exam: PRESENT: normal inspection. ABSENT: deformity Neurological exam: PRESENT: alert, awake, oriented to person, oriented to place, oriented to situation Psychiatric exam: PRESENT: appropriate affect, normal mood Skin exam: PRESENT: dry, warm, other - A small lesion of the initial ankle wound is scabbing over without exudate Results Laboratory Results: 10/19/19 06:57 10/19/19 06:57 10/18/19 10/18/19 10/19/19 16:43 16:43 06:57 WBC 10.0 7.5 RBC 3.77 L 3.57 L Hgb 11.7 L 11.0 L Hct 33.7 L 31.9 L MCV 89 89 MCH 31.0 30.9 MCHC 34.7 34.6 RDW 13.7 13.9 Plt Count 313 282 Seg Neutrophils % 74.2 Sodium 127.1 L Potassium 5.5 H Chloride 93 L Carbon Dioxide 24 Anion Gap 10 BUN 18 Creatinine 1.12 Est GFR ( Amer) > 60 Glucose 209 H Calcium 8.7 Total Bilirubin 0.3 AST 25 Alkaline Phosphatase 70 C-Reactive Protein 158.7 H Total Protein 6.5 Albumin 3.6 10/19/19 06:57 WBC RBC Hgb Hct MCV MCH MCHC RDW Plt Count Seg Neutrophils % Sodium 133.0 L Potassium 4.8 Chloride 100 Carbon Dioxide 26 Anion Gap 7 BUN 16 Creatinine 1.04 Est GFR ( Amer) > 60 Glucose 151 H Calcium 9.2 Total Bilirubin AST Alkaline Phosphatase C-Reactive Protein Total Protein Albumin Impressions: Extremity Ultrasound 10/18/19 00:00 IMPRESSION: Subcutaneous edema consistent with cellulitis without a focal abscess noted Foot X-Ray 10/18/19 16:09 IMPRESSION: No acute findings. Assessment and Plan - Diagnosis (1) Cellulitis of right foot Is this a current diagnosis for this admission?: Yes Plan: Ultrasound was negative for abscess. This was a bit surprising, because these 2 discrete areas previously mentioned certainly have the appearance of abscesses. He has responded well to IV vancomycin. Blood cultures are pending. (2) Hyponatremia Is this a current diagnosis for this admission?: Yes Plan: Has improved after some IV fluids, now nearly normal (3) Insulin dependent diabetes mellitus Is this a current diagnosis for this admission?: Yes Plan: He takes Actos but he also takes Tresiba, he says on an as-needed basis. We will put him on a sliding scale for now. (4) Hypertension Qualifiers: Hypertension type: essential hypertension Qualified Code(s): I10 - Essent ial (primary) hypertension Is this a current diagnosis for this admission?: Yes Plan: continue lisinopril. - Time Time Spent with patient: 25-34 minutes
[2019-10-19] MEDS ORDERED: LORAZEPAM INJ 2 MG/1 ML VIAL ONE (19:43)
[2019-10-19] MEDS ORDERED: LORAZEPAM INJ 2 MG/1 ML VIAL IV PRN (19:48)
[2019-10-19] MEDS ORDERED: VANCOMYCIN HCL 750 MG in DEXTROSE 5%-WATER 250 ML IV SCH (22:00)
[2019-10-20] MEDS ORDERED: CETIRIZINE 10 MG TABLET PO ONE (00:15)
[2019-10-20] MEDS: TRAZODONE HCL 50 MG TABLET PO PRN ×2 (00:15→22:11)
[2019-10-20 05:56] LABS: HEMATOCRIT 34.3 % (37.9-51.0); HEMOGLOBIN 11.9 g/dL (13.5-17.0); MEAN CORPUSCULAR HEMOGLOBIN 30.7 pg (27.0-33.4); MEAN CORPUSCULAR HGB CONC 34.6 g/dL (32.0-36.0); MEAN CORPUSCULAR VOLUME 89 fl (80-97); PLATELET COUNT 323 10^3/uL (150-450); RED BLOOD COUNT 3.88 10^6/uL (4.35-5.55); RED CELL DISTRIBUTION WIDTH 13.2 % (11.5-14.0); WHITE BLOOD COUNT 9.2 10^3/uL (4.0-10.5)
[2019-10-20 06:21] LABS: ANION GAP 11 (5-19); BLOOD UREA NITROGEN 18 mg/dL (7-20); CALCIUM 9.7 mg/dL (8.4-10.2); CARBON DIOXIDE 23 mmol/L (22-30); CHLORIDE 97 mmol/L (98-107); GLUCOSE 139 mg/dL (75-110); POTASSIUM 4.7 mmol/L (3.6-5.0)
[2019-10-20] MEDS: MORPHINE SULFATE 10 MG/ML INJ IV PRN ×2 (06:27→10:10)
[2019-10-20] MEDS: INSULIN LISPRO 100 UNIT/ML 3 ML VIAL SUBCUT SCH ×4 (07:49→21:19)
[2019-10-20] MEDS: CETIRIZINE 10 MG TABLET PO SCH (10:10)
[2019-10-20] MEDS: VANCOMYCIN HCL 1,250 MG in DEXTROSE 5%-WATER 250 ML IV SCH ×2 (10:11→22:12)
[2019-10-20] MEDS ORDERED: PREGABALIN 100 MG CAPSULE PO PRN (11:45)
[2019-10-20] MEDS ORDERED: HYDROCODONE/ACETAMINOPHEN 7.5-325 MG TABLET PO PRN (11:50)
[2019-10-20] MEDS ORDERED: HYDROXYZINE PAMOATE 25 MG CAPSULE PO PRN (12:06)
[2019-10-20] MEDS: FAMOTIDINE 20 MG TABLET PO SCH ×2 (12:55→22:11)
[2019-10-20] MEDS: LORAZEPAM 1 MG TABLET PO PRN ×3 (12:55→22:11)
--- NOTE | 2019-10-20 13:52 | RADIOLOGY REPORT (SQ) ---
EXAM DESCRIPTION: ANKLE RIGHT COMPLETE IMAGES COMPLETED DATE/TIME: 10/20/2019 1:35 pm REASON FOR STUDY: cellulitis, abscess COMPARISON: None. NUMBER OF VIEWS: Three views. TECHNIQUE: AP, lateral, and oblique without weight bearing radiographic images acquired of the right ankle. LIMITATIONS: None. FINDINGS: MINERALIZATION: Normal. BONES: No acute fracture or dislocation. No worrisome bone lesions. No significant osteophytes. JOINTS: No effusions. SOFT TISSUES: Mild lateral soft tissue swelling. No foreign body. OTHER: No other significant finding. IMPRESSION: MILD SOFT TISSUE SWELLING. NO OTHER SIGNIFICANT FINDINGS. TECHNICAL DOCUMENTATION: JOB ID: [id number] 2010 [employer]- All Rights Reserved Reading location - IP/workstation name: [email or web address]
--- NOTE | 2019-10-20 15:33 | PDOC PROGRESS REPORT ---
Subjective Progress Note for:: 10/20/19 Subjective:: Patient is a 69-year-old male with a past medical history of insulin-dependent diabetes, hypertension, GERD, and benzodiazepine dependent chronic anxiety who was admitted 10/18/2019 for right ankle cellulitis. Patient was seen on morning rounds. He was found sitting upright in bed, comfortably, on room air. He is highly anxious today; believes that he has iodoform packing left in his wound from I&D completed at urgent care prior to admission. He reports multiple urgent care visits and two I&D's prior to admission. He reports that the medial aspect of his foot is decreased in tenderness, edema, erythema, however, reports minimal improvement to his remaining foot and ankle. Reports pain is worse. Asks me to repeat I&D to "search for that piece of ribbon." He denies fever, chills, body aches, chest pain, palpitations, dyspnea, abdominal, pain, nausea, vomiting, diarrhea. No other questions or concerns. No concerns per nursing. Reason For Visit: RIGHT FOOT ABSCESS, CELLULITIS Physical Exam Vital Signs: Temp Pulse Resp BP Pulse Ox 98.4 F 93 16 111/40 L 98 10/20/19 07:32 10/20/19 07:32 10/20/19 07:32 10/20/19 07:32 10/20/19 07:32 Intake & Output 10/19/19 10/20/19 10/21/19 06:59 06:59 06:59 Intake Total 222 822 250 Output Total 2075 1225 Balance -1853 -403 250 Weight 89.6 kg 91.7 kg General appearance: PRESENT: no acute distress, cooperative, well-developed, well-nourished Head exam: PRESENT: atraumatic, normocephalic Eye exam: PRESENT: conjunctiva pink, EOMI, PERRLA. ABSENT: scleral icterus Mouth exam: PRESENT: moist, tongue midline Respiratory exam: PRESENT: clear to auscultation elsi, symmetrical, unlabored. ABSENT: rales, rhonchi, wheezes Cardiovascular exam: PRESENT: RRR, +S1, +S2. ABSENT: diastolic murmur, rubs, systolic murmur Pulses: PRESENT: normal dorsalis pedis pul Vascular exam: PRESENT: normal capillary refill Extremities exam: PRESENT: full ROM. ABSENT: calf tenderness, clubbing, pedal edema Musculoskeletal exam: PRESENT: ambulatory Neurological exam: PRESENT: alert, awake, oriented to person, oriented to place, oriented to time, oriented to situation, CN II-XII grossly intact. ABSENT: motor sensory deficit Psychiatric exam: PRESENT: anxious, appropriate affect, normal mood. ABSENT: homicidal ideation, suicidal ideation Skin exam: PRESENT: dry, erythema - 0.5 cm round, shallow, ulceration to Rt lateral malleolus draining scant purulent fluid. Intense erythema to foot. Mild edema to the lateral aspect of foot., warm. ABSENT: cyanosis, rash Results Laboratory Results: 10/20/19 05:39 10/20/19 05:39 10/20/19 10/20/19 05:39 05:39 WBC 9.2 RBC 3.88 L Hgb 11.9 L Hct 34.3 L MCV 89 MCH 30.7 MCHC 34.6 RDW 13.2 Plt Count 323 Sodium 131.4 L Potassium 4.7 Chloride 97 L Carbon Dioxide 23 Anion Gap 11 BUN 18 Creatinine 0.81 Est GFR ( Amer) > 60 Glucose 139 H Calcium 9.7 10/18/19 17:37 Blood Blood Culture (PCR) - Final Staphylococcus Species Impressions: Extremity Ultrasound 10/18/19 00:00 IMPRESSION: Subcutaneous edema consistent with cellulitis without a focal abscess noted Foot X-Ray 10/18/19 16:09 IMPRESSION: No acute findings. Ankle X-Ray 10/20/19 00:00 IMPRESSION: MILD SOFT TISSUE SWELLING. NO OTHER SIGNIFICANT FINDINGS. Assessment and Plan - Diagnosis (1) Cellulitis of right foot Is this a current diagnosis for this admission?: Yes Plan: Ultrasound was negative for abscess. This was a bit surprising, because these 2 discrete areas previously mentioned certainly have the appearance of abscesses. Repeat x-rays today are benign. WBC is normal; remains afebrile. Patient reports minimal improvement to erythema and edema; reports significant pain (noted to be ambulatory without difficulty later in the day). He is also concerned about possible remaining iodoform packing from I&D done prior to admission. Asks me, multiple times, to open the wound to investigate. Blood culture (1 of 4 bottles) grew coag negative staph; likely contaminant. Wound culture pending. New IV vancomycin. We will consult Ortho; low suspicion that the patient will require additional I&D's. However, I am more concerned by the wound being located directly over the ankle joint with little improvement per patient and nursing report. (2) Hypertension Qualifiers: Hypertension type: essential hypertension Qualified Code(s): I10 - Essential (primary) hypertension Is this a current diagnosis for this admission?: Yes Plan: Well-controlled today. Continue lisinopril. (3) Hyponatremia Is this a current diagnosis for this admission?: Yes Plan: Has improved after some IV fluids. We will liberalize dietary sodium. Follow-up chemistry. (4) Insulin dependent diabetes mellitus Is this a current diagnosis for this admission?: Yes Plan: Holding oral medications while admitted. We will check A1c with a.m. lab work. Patient is placed on a consistent carb diet. Accu-Cheks before meals and at bedtime with Humalog for sliding scale coverage. Hypoglycemia protocol in place. Registered dietitian development educator consulted. (5) Chronic pain Qualifiers: Chronic pain type: other chronic pain Qualified Code(s): G89.29 - Other chronic pain Is this a current diagnosis for this admission?: Yes Plan: We will continue home dose Lyrica. Patient utilizes [employer] at home; 7.5/325 every 8 hours. We will allow for 1-2 tabs every 6 while admitted (6) Chronic anxiety Is this a current diagnosis for this admission?: Yes Plan: Resume home dose p.o. Lorazepam. Continue trazodone nightly. - Time Time Spent with patient: 35 or more minutes Medications reviewed and adjusted accordingly: Yes Anticipated discharge: Home Within: within 72 hours
--- NOTE | 2019-10-20 17:27 | PDOC CONSULTATION ---
Consultation Consult Date: 10/20/19 Attending physician:: SYLVIE JIMENEZ Provider Consulted: SHAQUILLE MCKEON Consult reason:: right foot cellulitis possible abscess History of Present Illness Admission Date/PCP: 10/18/19 20:50 SYLVIA REYEZ MD Patient complains of: Swelling and erythema of the right lateral ankle and foot History of Present Illness: ADAM KWOK JR is a 69 year old male who reports having sustained an injury with a dog leash to his right ankle 7 to 10 days ago. Increasing pain and swelling the patient sought care at a local urgent care. He states that he was treated with packing of a small wound just inferior to the lateral malleolus. Despite this treatment his symptoms worsened. He presented to the ER at [facility] Saturday evening with erythema extending up the tibia to the inferior aspect of his knee. At the time of this admission an ultrasound of the foot and ankle was performed which was negative for fluid collection or abscess. The patient has been on intravenous vancomycin with resolution of the cellulitis along the tibia and medial aspect of the leg. The patient continues to complain of pain, erythema, and swelling at the inferior border of the lateral malleolus and foot. The patient had a positive blood culture for coagulase negative staph with methicillin resistance. Past Medical History Cardiac Medical History: Reports: Hypertension Endocrine Medical History: Reports: Diabetes Mellitus Type 1, Diabetes Mellitus Type 2 Psychiatric Medical History: Denies: Depression Social History Smoking Status: Never Smoker Electronic Cigarette use?: No Frequency of Alcohol Use: None Drugs: None Family History Family History: Reviewed & Not Pertinent Parental Family History Reviewed: Yes Children Family History Reviewed: Yes Sibling(s) Family History Reviewed.: Yes Medication/Allergy Home Medications: Acetaminophen/Diphenhydramine [Tylenol Pm Ex-Strength Caplet] 2 tab PO QHS 10/19/19 Hydrocodone/Acetaminophen [[place] 7.5-325 mg Tablet] 1 tab PO Q8HP PRN 10/19/19 Lisinopril [Zestril] 40 mg PO QPM 10/19/19 Lorazepam [Ativan] 2 mg PO QIDP PRN 10/19/19 Pregabalin [Lyrica 100 mg Capsule] 100 mg PO Q8HP PRN 10/19/19 Allergies/Adverse Reactions: diphenhydramine [From Benadryl] Adverse Reaction (Unknown, Verified 10/20/19 02:56) ibuprofen Adverse Reaction (Verified 07/29/18 10:50) Review of Systems All systems: reviewed and no additional remarkable complaints except as stated - As per HPI Physical Exam Vital Signs: Temp Pulse Resp BP Pulse Ox 98.6 F 91 18 109/44 L 96 10/20/19 16:13 10/20/19 16:13 10/20/19 16:13 10/20/19 16:13 10/20/19 16:13 Intake & Output 10/19/19 10/20/19 10/21/19 06:59 06:59 06:59 Intake Total 222 822 250 Output Total 2075 1225 300 Balance -1853 -403 -50 Weight 89.6 kg 91.7 kg General appearance: PRESENT: no acute distress Head exam: PRESENT: atraumatic, normocephalic Neck exam: PRESENT: full ROM Respiratory exam: PRESENT: clear to auscultation elsi. ABSENT: rales, rhonchi, wheezes Cardiovascular exam: PRESENT: RRR. ABSENT: bradycardia, clicks, diastolic murmur, gallop, irregular rhythm, rubs, +S1, +S2, systolic murmur, tachycardia, other Pulses: PRESENT: +2 pedal pulses bilateral GI/Abdominal exam: PRESENT: soft Rectal exam: PRESENT: deferred Musculoskeletal exam: PRESENT: other - There is a 1 cm wound inferior to the lateral malleolus that has scabbed over. There is no drainage expressible from this area. There is another area of fluctuance anterior to the sinus Tarsi of the foot. There is significant erythema at the inferior border of the ankle on its lateral aspect which continues to the dorsum of the foot and toes. There is no erythema medially. Results Laboratory Results: 10/20/19 05:39 10/20/19 05:39 10/20/19 10/20/19 05:39 05:39 WBC 9.2 RBC 3.88 L Hgb 11.9 L Hct 34.3 L MCV 89 MCH 30.7 MCHC 34.6 RDW 13.2 Plt Count 323 Sodium 131.4 L Potassium 4.7 Chloride 97 L Carbon Dioxide 23 Anion Gap 11 BUN 18 Creatinine 0.81 Est GFR ( Amer) > 60 Glucose 139 H Calcium 9.7 10/18/19 17:37 Blood Blood Culture (PCR) - Final Staphylococcus Species Impressions: Extremity Ultrasound 10/18/19 00:00 IMPRESSION: Subcutaneous edema consistent with cellulitis without a focal abscess noted Foot X-Ray 10/18/19 16:09 IMPRESSION: No acute findings. Ankle X-Ray 10/20/19 00:00 IMPRESSION: MILD SOFT TISSUE SWELLING. NO OTHER SIGNIFICANT FINDINGS. Assessment & Plan - Diagnosis (1) Cellulitis of right foot Is this a current diagnosis for this admission?: Yes - Time Time Spent: 30 to 50 Minutes - The patient is a 69-year-old man with diabetes admitted to the hospital with cellulitis of the right leg. Upon admission and ultrasound of the ankle and foot was negative for abscess. He has improved significantly on intravenous antibiotics; however, the lateral aspect of the foot and ankle has not yet improved. This may represent an abscess that has evolved since his admission. We will obtain an MRI of the ankle to assess for this possibility. In the meantime I have recommended to the patient that he soak his foot for at least 20 minutes 4 times a day. This may be enough to loosen the eschar on the inferior aspect of his ankle and allow sufficient drainage to avoid operative intervention. I have discussed this in detail with the patient. I will follow the MRI results.
[2019-10-20] MEDS: HYDROCODONE/ACETAMINOPHEN 7.5-325 MG TABLET PO PRN (17:53)
[2019-10-21] MEDS: HYDROCODONE/ACETAMINOPHEN 7.5-325 MG TABLET PO PRN ×3 (01:27→22:46)
[2019-10-21 06:07] LABS: HEMATOCRIT 33.1 % (37.9-51.0); HEMOGLOBIN 11.6 g/dL (13.5-17.0); MEAN CORPUSCULAR HEMOGLOBIN 30.5 pg (27.0-33.4); MEAN CORPUSCULAR VOLUME 87 fl (80-97); PLATELET COUNT 343 10^3/uL (150-450); RED CELL DISTRIBUTION WIDTH 13.1 % (11.5-14.0); WHITE BLOOD COUNT 7.3 10^3/uL (4.0-10.5)
[2019-10-21 06:26] LABS: ANION GAP 11 (5-19); BLOOD UREA NITROGEN 16 mg/dL (7-20); CALCIUM 10.2 mg/dL (8.4-10.2); CARBON DIOXIDE 25 mmol/L (22-30); CHLORIDE 99 mmol/L (98-107); GLUCOSE 136 mg/dL (75-110); POTASSIUM 4.7 mmol/L (3.6-5.0)
[2019-10-21] MEDS: INSULIN LISPRO 100 UNIT/ML 3 ML VIAL SUBCUT SCH ×4 (09:25→22:48)
[2019-10-21] MEDS: CETIRIZINE 10 MG TABLET PO SCH (09:25)
[2019-10-21] MEDS: FAMOTIDINE 20 MG TABLET PO SCH ×2 (09:25→22:49)
[2019-10-21] MEDS: VANCOMYCIN HCL 1,250 MG in DEXTROSE 5%-WATER 250 ML IV SCH ×2 (09:26→22:48)
[2019-10-21] MEDS: LORAZEPAM 1 MG TABLET PO PRN ×2 (09:51→17:18)
[2019-10-21] MEDS ORDERED: DIAZEPAM INJ 10 MG/2 ML DISP.SYRIN IV PRN (10:20)
--- NOTE | 2019-10-21 13:48 | RADIOLOGY REPORT (SQ) ---
EXAM DESCRIPTION: MRI RT LOWER JOINT WITHOUT IMAGES COMPLETED DATE/TIME: 10/21/2019 12:51 pm REASON FOR STUDY: Right ankle for abscess COMPARISON: None. TECHNIQUE: Right ankle images acquired and stored on PACS. Multiplanar images include fat sensitive sequences as T1, fluid sensitive sequences as FST2/STIR, cartilage sensitive sequences as FSPD, and g radient echo sequences. LIMITATIONS: Motion. FINDINGS: BONE MARROW: No alteration of signal to suggest marrow replacement or edema. No occult fra cture. No large osteophytes. EFFUSIONS: No subtalar or tibiotalar effusions. No loose bodies. OSSEOUS ARTICULATIONS: Mild degenerative changes talonavicular and subtalar joints. TALAR DOME AND TIBIAL PLAFOND: Intact. ACHILLES TENDON: Intact without partial or full-thickness tear. No adjacent bursal fluid or edema. TIBIALIS ANTERIOR TENDON: Intact without edema at the 1st MT attachment. TIBIALIS POSTERIOR TENDON: Normal morphology and no edema at the navicular attachment. No tendon crain th fluid. FLEXOR HALLUCIS LONGUS AND FLEXOR DIGITORUM TENDONS: Normal morphology and no tendon sheath fluid. No edema of the os trigonum. PERONEUS LONGUS AND BREVIS TENDON: Mildly increased fluid peroneus longus tendon sheath. ATFL, CFL, PTFL: Intact. No thickening or signal alteration. No jesus-ligamentous fluid. DELTOID LIGAMENT: Visualized components intact. TARSAL TUNNEL: No masses. No muscle atrophy. SINUS TARSI: No fluid. No reactive marrow edema or erosions. PLANTAR FASCIA: No signal alteration or tear. ADJACENT SOFT TISSUES: Inflammatory changes lateral subcutaneous tissues. No abscess. OTHER: No other significant finding. IMPRESSION: 1. Cellulitis. No evidence of abscess or osteomyelitis. 2. Tenosynovitis peroneus longus. 3. Degenerative changes talonavicular and subtalar joints. TECHNICAL DOCUMENTATION: JOB ID: [id number] 2010 [employer]- All Rights Reserved Reading location - IP/workstation name: [email or web address]
--- NOTE | 2019-10-21 14:10 | PDOC PROGRESS REPORT ---
Subjective Progress Note for:: 10/21/19 Subjective:: Patient is a 69-year-old male with a past medical history of insulin-dependent diabetes, hypertension, GERD, and benzodiazepine dependent chronic anxiety who was admitted 10/18/2019 for right ankle cellulitis. Patient was seen on morning rounds. He was found sitting upright in bed, comfortably, on room air. He is anxious about MRI; states he was too claustrophobic to have imaging done yesterday (open MRI with imaging of foot only planned). He is agreeable to try again with anxiety medication temperature control inspector to MRI. Continues to have pain; predominantly to the left lateral malleolus and left lateral aspect of his foot. He is noted to be ambulatory without difficul ty. He denies fever, chills, body aches, chest pain, palpitations, dyspnea, abdominal, pain, nausea, vomiting, diarrhea. No other questions or concerns. No concerns per nursing. Reason For Visit: RIGHT FOOT ABSCESS, CELLULITIS Physical Exam Vital Signs: Temp Pulse Resp BP Pulse Ox 97.9 F 90 17 118/47 L 100 10/20/19 19:38 10/21/19 08:20 10/20/19 19:38 10/21/19 08:20 10/21/19 08:20 Intake & Output 10/20/19 10/21/19 10/22/19 06:59 06:59 06:59 Intake Total 822 500 Output Total 1225 5 Balance -403 -1525 Weight 91.7 kg 88.3 kg General appearance: PRESENT: no acute distress, well-developed, well-nourished Head exam: PRESENT: atraumatic, normocephalic Eye exam: PRESENT: conjunctiva pink, EOMI, PERRLA. ABSENT: scleral icterus Mouth exam: PRESENT: moist, tongue midline Respiratory exam: PRESENT: clear to auscultation elsi, symmetrical, unlabored. ABSENT: rales, rhonchi, wheezes Cardiovascular exam: PRESENT: RRR. ABSENT: diastolic murmur, rubs, systolic murmur Pulses: PRESENT: normal dorsalis pedis pul Vascular exam: PRESENT: normal capillary refill Extremities exam: PRESENT: full ROM, pedal edema - trace right foot. ABSENT: calf tenderness, clubbing Musculoskeletal exam: PRESENT: ambulatory Neurological exam: PRESENT: alert, awake, oriented to person, oriented to place, oriented to time, oriented to situation, CN II-XII grossly intact. ABSENT: motor sensory deficit Psychiatric exam: PRESENT: anxious, appropriate affect, normal mood. ABSENT: homicidal ideation, suicidal ideation Skin exam: PRESENT: dry, erythema, warm, other - 0.5 cm round, shallow, ulceration to Rt lateral malleolus draining scant serous fluid. Intense erythema to foot. Mild edema to the lateral aspect of foot. ABSENT: cyanosis, rash Results Laboratory Results: 10/21/19 05:36 10/21/19 05:36 10/21/19 10/21/19 05:36 05:36 WBC 7.3 RBC 3.80 L Hgb 11.6 L Hct 33.1 L MCV 87 MCH 30.5 MCHC 35.0 RDW 13.1 Plt Count 343 Sodium 134.5 L Potassium 4.7 Chloride 99 Carbon Dioxide 25 Anion Gap 11 BUN 16 Creatinine 0.72 Est GFR ( Amer) > 60 Glucose 136 H Calcium 10.2 10/18/19 17:37 Blood Blood Culture (PCR) - Final Staphylococcus Species Impressions: Extremity Ultrasound 10/18/19 00:00 IMPRESSION: Subcutaneous edema consistent with cellulitis without a focal abscess noted Foot X-Ray 10/18/19 16:09 IMPRESSION: No acute findings. Ankle X-Ray 10/20/19 00:00 IMPRESSION: MILD SOFT TISSUE SWELLING. NO OTHER SIGNIFICANT FINDINGS. Lower Extremity MRI 10/21/19 00:00 IMPRESSION: 1. Cellulitis. No evidence of abscess or osteomyelitis. 2. Tenosynovitis peroneus longus. 3. Degenerative changes talonavicular and subtalar joints. Assessment and Plan - Diagnosis (1) Cellulitis of right foot Is this a current diagnosis for this admission?: Yes Plan: Ultrasound was negative for abscess. This was a bit surprising, because these 2 discrete areas previously mentioned certainly have the appearance of abscesses. Repeat x-rays are benign. WBC is normal; remains afebrile. Blood culture (1 of 4 bottles) grew coag negative staph; likely contaminant. Wound culture pending. MRI ankle showed cellulitis and tenosynovitis without abscess or fluid collection. Continue IV vancomycin. Have consulted Ortho; appreciate Dr. Deleon's evaluation and recommendations. (2) Hypertension Qualifiers: Hypertension type: essential hypertension Qualified Code(s): I10 - Es sential (primary) hypertension Is this a current diagnosis for this admission?: Yes Plan: Well-controlled today. Continue lisinopril. (3) Hyponatremia Is this a current diagnosis for this admission?: Yes Plan: Trending up; currently 134.5. We will liberalize dietary sodium. Follow-up chemistry. (4) Insulin dependent diabetes mellitus Is this a current diagnosis for this admission?: Yes Plan: A1c 7.6% Holding oral medications while admitted. Patient is placed on a consistent carb diet. Accu-Cheks before meals and at bedtime with Humalog for sliding scale coverage. Hypoglycemia protocol in place. Registered dietitian critical care educator consulted. (5) Chronic pain Qualifiers: Chronic pain type: other chronic pain Qualified Code(s): G89.29 - Other chronic pain Is this a current diagnosis for this admission?: Yes Plan: We will continue home dose Lyrica. Patient utilizes [place] at home; 7.5/325 every 8 hours. We will allow for 1-2 tabs every 6 while admitted and being treated for cellulitis. (6) Chronic anxiety Is this a current diagnosis for this admission?: Yes Plan: Resume home dose p.o. Lorazepam. Continue trazodone nightly. - Time Time Spent with patient: 25-34 minutes Medications reviewed and adjusted accordingly: Yes Anticipated discharge: Home Within: within 72 hours
[2019-10-21] MEDS ORDERED: NA PHOS,M-B/NA PHOS,DI-BA (ADULT) 133 ML ENEMA PR ONE (19:33)
[2019-10-21] MEDS ORDERED: MAGNESIUM HYDROXIDE SUSP 30 ML UDCUP PO PRN (19:33)
[2019-10-21 21:59] LABS: VANCOMYCIN,TROUGH 11.8 ug/mL (5.0-20.0)
[2019-10-21] MEDS: TRAZODONE HCL 50 MG TABLET PO PRN (22:49)
[2019-10-22] MEDS: HYDROCODONE/ACETAMINOPHEN 7.5-325 MG TABLET PO PRN ×3 (05:23→15:51)
[2019-10-22 06:07] LABS: ANION GAP 10 (5-19); BLOOD UREA NITROGEN 15 mg/dL (7-20); CALCIUM 9.7 mg/dL (8.4-10.2); CARBON DIOXIDE 26 mmol/L (22-30); CHLORIDE 97 mmol/L (98-107); GLUCOSE 186 mg/dL (75-110); POTASSIUM 4.4 mmol/L (3.6-5.0)
[2019-10-22] MEDS: INSULIN LISPRO 100 UNIT/ML 3 ML VIAL SUBCUT SCH ×2 (08:20→13:16)
[2019-10-22] MEDS: VANCOMYCIN HCL 1,250 MG in DEXTROSE 5%-WATER 250 ML IV SCH (10:06)
[2019-10-22] MEDS: CETIRIZINE 10 MG TABLET PO SCH (10:07)
[2019-10-22] MEDS: FAMOTIDINE 20 MG TABLET PO SCH (10:07)
[2019-10-22 16:44] VITALS: BP 127/73
--- NOTE | 2019-10-24 18:04 | PDOC DISCHARGE SUMMARY ---
Impression - Admit/DC Date/PCP Admission Date/Primary Care Provider: 10/18/19 20:50 SYLVIA REYEZ MD Discharge Date: 10/22/19 - Discharge Diagnosis (1) Cellulitis of right foot Is this a current diagnosis for this admission?: Yes (2) Hypertension Is this a current diagnosis for this admission?: Yes (3) Hyponatremia Is this a current diagnosis for this admission?: Yes (4) Insulin dependent diabetes mellitus Is this a current diagnosis for this admission?: Yes (5) Chronic pain Is this a current diagnosis for this admission?: Yes (6) Chronic anxiety Is this a current diagnosis for this admission?: Yes - Additional Information Discharge Diet: Diabetic Discharge Activity: Activity As Tolerated, Balance Activity w/Rest, Slowly Inc rease Activity Referrals: SHAQUILLE DELEON MD [ACTIVE PROVISIONAL STAFF] - 10/28/19 12:00 pm (Follow up as needed.) SYLVIA REYEZ MD [Primary Care Provider] - 10/29/19 2:30 pm (Follow up within 1 week.) Prescriptions: Sulfamethoxazole/Trimethoprim [Bactrim Ds Tablet] 1 each PO Q12 #10 tablet Hydrocodone/Acetaminophen [Gail 7.5-325 mg Tablet] 1 - 2 tab PO Q6HP PRN #12 tablet PRN Reason: Home Medications: Acetaminophen/Diphenhydramine [Tylenol Pm Ex-Strength Caplet] 2 tab PO QHS 10/19/19 Hydrocodone/Acetaminophen [Gail 7.5-325 mg Tablet] 1 tab PO Q8HP PRN 10/19/19 Lisinopril [Zestril] 40 mg PO QPM 10/19/19 Lorazepam [Ativan] 2 mg PO QIDP PRN 10/19/19 Pregabalin [Lyrica 100 mg Capsule] 100 mg PO Q8HP PRN 10/19/19 Acetaminophen [Tylenol 325 mg Tablet] 650 mg PO Q4HP PRN tablet 10/22/19 Cetirizine HCl [Zyrtec 10 mg Tablet] 10 mg PO DAILY tablet 10/22/19 Hydrocodone/Acetaminophen [Gail 7.5-325 mg Tablet] 1 - 2 tab PO Q6HP PRN #12 tablet 10/22/19 Sulfamethoxazole/Trimethoprim [Bactrim Ds Tablet] 1 each PO Q12 #10 tablet 10/22/19 History of Present Illiness History of Present Illness: Per H&P by Dr. Seals: ADAM KWOK JR is a 69 year old male with a history of insulin-dependent diabetes and hypertension who presents with right foot pain and swelling. A little over a week ago his dog's leash got wrapped around his foot and it made a laceration over his right lateral malleolus. He began to have a lot of redness and swelling and so he went to urgent care where he was initially sent for x-rays. No fracture was found, and the wound was irrigated he said that they packed it as well. He was started on Bactrim. He said he went back the next day and got it repacked. He said somebody from [place] was supposed to come up and look at it but he said whoever it was did not do anything to it. He came back in today because he has had some persistent drainage and the redness has worsened, as has the pain and erythema. He is not had any fevers. Hospital Course Hospital Course: (1) Cellulitis of right foot Complicated by long standing diabetes. Ultrasound was negative for abscess. Repeat x-rays are benign. WBC is normal; remains afebrile throughout admission. Blood culture (1 of 4 bottles) grew coag negative staph; likely contaminant. Wound culture pending. MRI ankle showed cellulitis and tenosynovitis without abscess or fluid collection. Patient was placed on IV vancomycin x5 days. He is discharged on p.o. Bactrim DS. Ortho was consulted; appreciate Dr. Deleon's evaluation and recommendations. Ortho has approved discharge; recommends to continue frequent warm water soaks. (2) Hypertension Well-controlled today. Continue lisinopril. (3) Hyponatremia Trending up; no longer clinically significant. We will liberalize dietary sodium. (4) Insulin dependent diabetes mellitus A1c 7.6% Patient was placed on a consistent carb diet. Accu-Cheks before meals and at bedtime with Humalog for sliding scale coverage with hypoglycemia protocol in place. He is to resume his outpatient regiment upon discharge. (5) Chronic pain Continued home dose Lyrica. Patient utilizes [place] at home; 7.5/325 every 8 hours. Provided 1-2 tabs every 6 while admitted and being treated for cellulitis. (6) Chronic anxiety Continue home dose p.o. Lorazepam. Continue trazodone nightly. Physical Exam Vital Signs: Temp Pulse Resp BP Pulse Ox 98.1 F 81 18 127/73 H 97 10/22/19 16:37 10/22/19 16:37 10/22/19 16:37 10/22/19 16:37 10/22/19 16:37 Intake & Output 10/23/19 10/24/19 10/25/19 06:59 06:59 06:59 Intake Total 480 Output Total 300 Balance 180 General appearance: PRESENT: no acute distress, well-developed, well-nourished Head exam: PRESENT: atraumatic, normocephalic Eye exam: PRESENT: conjunctiva pink, EOMI, PERRLA. ABSENT: scleral icterus Mouth exam: PRESENT: moist, tongue midline Respiratory exam: PRESENT: clear to auscultation elsi, symmetrical, unlabored. ABSENT: rales, rhonchi, wheezes Cardiovascular exam: PRESENT: RRR. ABSENT: diastolic murmur, rubs, systolic murmur Pulses: PRESENT: normal dorsalis pedis pul Vascular exam: PRESENT: normal capillary refill Extremities exam: PRESENT: full ROM. ABSENT: calf tenderness, clubbing, pedal edema Musculoskeletal exam: PRESENT: ambulatory Neurological exam: PRESENT: alert, awake, oriented to person, oriented to place, oriented to time, oriented to situation, CN II-XII grossly intact. ABSENT: motor sensory deficit Psychiatric exam: PRESENT: appropriate affect, normal mood. ABSENT: homicidal ideation, suicidal ideation Skin exam: PRESENT: dry, warm, other - 0.5 cm round, shallow, ulceration to Rt lateral malleolus draining scant serous fluid. ABSENT: cyanosis, erythema, intact, rash Results Laboratory Results: WBC 7.3 10^3/uL (4.0-10.5) 10/21/19 05:36 RBC 3.80 10^6/uL (4.35-5.55) L 10/21/19 05:36 Hgb 11.6 g/dL (13.5-17.0) L 10/21/19 05:36 Hct 33.1 % (37.9-51.0) L 10/21/19 05:36 MCV 87 fl (80-97) 10/21/19 05:36 MCH 30.5 pg (27.0-33.4) 10/21/19 05:36 MCHC 35.0 g/dL (32.0-36.0) 10/21/19 05:36 RDW 13.1 % (11.5-14.0) 10/21/19 05:36 Plt Count 343 10^3/uL (150-450) 10/21/19 05:36 Lymph % (Auto) 14.2 % (13-45) 10/18/19 16:43 [place] % (Auto) 9.2 % (3-13) 10/18/19 16:43 Eos % (Auto) 2.0 % (0-6) 10/18/19 16:43 Baso % (Auto) 0.4 % (0-2) 10/18/19 16:43 Absolute Neuts (auto) 7.4 10^3/uL (1.7-8.2) 10/18/19 16:43 Absolute Lymphs (auto) 1.4 10^3/uL (0.5-4.7) 10/18/19 16:43 Absolute Monos (auto) 0.9 10^3/uL (0.1-1.4) 10/18/19 16:43 Absolute Eos (auto) 0.2 10^3/uL (0.0-0.6) 10/18/19 16:43 Absolute Basos (auto) 0.0 10^3/uL (0.0-0.2) 10/18/19 16:43 Seg Neutrophils % 74.2 % (42-78) 10/18/19 16:43 ESR 98 mm/hr (0-20) H 10/18/19 16:43 Sodium 133.2 mmol/L (137-145) L 10/22/19 05:07 Potassium 4.4 mmol/L (3.6-5.0) 10/22/19 05:07 Chloride 97 mmol/L (98-107) L 10/22/19 05:07 Carbon Dioxide 26 mmol/L (22-30) 10/22/19 05:07 Anion Gap 10 (5-19) 10/22/19 05:07 BUN 15 mg/dL (7-20) 10/22/19 05:07 Creatinine 0.62 mg/dL (0.52-1.25) 10/22/19 05:07 Est GFR ( Amer) > 60 (>60) 10/22/19 05:07 Est GFR (MDRD) Non-Af > 60 (>60) 10/22/19 05:07 Glucose 186 mg/dL (75-110) H 10/22/19 05:07 POC Glucose 205 mg/dL (70-110) H 10/22/19 12:39 Hemoglobin A1c % 7.6 % (4.7-6.0) H 10/21/19 05:36 Calcium 9.7 mg/dL (8.4-10.2) 10/22/19 05:07 Total Bilirubin 0.3 mg/dL (0.2-1.3) 10/18/19 16:43 Direct Bilirubin 0.0 mg/dL (0.0-0.4) 10/18/19 16:43 Neonat Total Bilirubin Not Reportable 10/18/19 16:43 Neonat Direct Bilirubin Not Reportable 10/18/19 16:43 Neonat Indirect Bili Not Reportable 10/18/19 16:43 AST 25 U/L (17-59) 10/18/19 16:43 ALT 22 U/L (<50) 10/18/19 16:43 Alkaline Phosphatase 70 U/L (38-126) 10/18/19 16:43 C-Reactive Protein 158.7 mg/L (<10.0) H 10/18/19 16:43 Total Protein 6.5 g/dL (6.3-8.2) 10/18/19 16:43 Albumin 3.6 g/dL (3.5-5.0) 10/18/19 16:43 Time Trough Drawn 2130 10/21/19 21:30 Vancomycin Trough 11.8 ug/mL (5.0-20.0) 10/21/19 21:30 Impressions: Extremity Ultrasound 10/18/19 00:00 IMPRESSION: Subcutaneous edema consistent with cellulitis without a focal abscess noted Foot X-Ray 10/18/19 16:09 IMPRESSION: No acute findings. Ankle X-Ray 10/20/19 00:00 IMPRESSION: MILD SOFT TISSUE SWELLING. NO OTHER SIGNIFICANT FINDINGS. Lower Extremity MRI 10/21/19 00:00 IMPRESSION: 1. Cellulitis. No evidence of abscess or osteomyelitis. 2. Tenosynovitis peroneus longus. 3. Degenerative changes talonavicular and subtalar joints. Plan Plan of Treatment: Patient is discharged in stable condition. He is instructed to follow-up with your primary care provider within 1 week. Complete full course of antibiotic therapy. Follow-up with Dr. Deleon, as needed, following completion of antibiotics. Continue warm soapy water foot soaks x20 minutes 3-4 times daily. Take other medication as prescribed. Eat a heart healthy/consistent carb diet. Do NOT smoke. Return to emergency department as needed for concerning symptoms. Time Spent: Greater than 30 Minutes Stroke Is this a Stroke Patient?: No Acute Heart Failure - Is this a Heart Failure Patient?: No
== END 2019-10-22 16:55 | disposition home or self-care (01) | DRG 638 ==
LOC: ER 15:54 → EH 20:50 → 3W 21:51
PROVIDERS: ADMIT Family Medicine; ATTEND Registered Nurse
DX: E11.628 Type 2 diabetes mellitus with other skin complications (principal); L03.115 Cellulitis of right lower limb; E87.1 Hypo-osmolality and hyponatremia; F13.20 Sedative, hypnotic or anxiolytic dependence, uncomplicated; E11.9 Type 2 diabetes mellitus without complications; I10 Essential (primary) hypertension; F41.8 Other specified anxiety disorders; Z79.4 Long term (current) use of insulin; Z83.3 Family history of diabetes mellitus; Z83.438 Family history of other disorder of lipoprotein metabolism and other lipidemia; Z88.6 Allergy status to analgesic agent; Z79.899 Other long term (current) drug therapy; S93.401A Sprain of unspecified ligament of right ankle, initial encounter; S91.311A Laceration without foreign body, right foot, initial encounter; W45.8XXA Other foreign body or object entering through skin, initial encounter; Y93.K1 Activity, walking an animal
CPT/HCPCS: 36415; 76881; 80048; 80053; 80202; 82962; 83036; 85025; 85027; 85652; 86140; 87040; 87070; 87075; 87077; 87150; 87186; 87205; 96365; 99285; J1815; J2060; J2270; J3360; J3370; J3490; J7030; J7060

== ENCOUNTER 2020-02-11 07:33 | Day surgery (SDC) | payer MEDICARE, MEDICAID ==
[~2020-02-11 07:33] MED LIST: CHONDR SU A NA/HYALUR INTRAOC KIT (SURGICARE) ONE; EPINEPHRINE INJ/PF 1 MG/1 ML AMPULE ONE; FENTANYL CITRATE INJ/PF 100 MCG/2 ML AMPUL ONE; KETOROLAC TROMETHAMINE 0.45% 4 DROP/0.4 ML DROPERETTE OS PRN; LIDOCAINE 1%/PHENYLEPHRINE 1.5% 0.8 ML SYRINGE ONE; MIDAZOLAM 2 MG/2 ML INJ ONE
[2020-02-11] MEDS: TETRACAINE HCL 0.5% OPH SOLN 4 ML OS PRN ×4 (08:00→08:23)
[2020-02-11] MEDS: CYCLOPENTOLATE 0.2%/PHENYLEPHRINE 1% OPH SOLN 2 ML OS PRN ×3 (08:01→08:21)
[2020-02-11] MEDS: TROPICAMIDE 1% OPH SOLN 15 ML OS PRN ×3 (08:01→08:22)
[2020-02-11] MEDS: BESIFLOXACIN HCL 0.6% OPH SUSP 5 ML BOTTLE OS PRN ×4 (08:01→08:50)
[2020-02-11] MEDS ORDERED: PROPOFOL INJ 200 MG/20 ML VIAL IV ONE (08:32)
[2020-02-11] MEDS ORDERED: MIDAZOLAM 2 MG/2 ML INJ ONE (08:32)
[2020-02-11] MEDS: CHONDR SU A NA/HYALUR INTRAOC KIT (SURGICARE) ONE ×2 (08:40)
[2020-02-11] MEDS: EPINEPHRINE INJ/PF 1 MG/1 ML AMPULE ONE ×2 (08:40)
[2020-02-11] MEDS: LIDOCAINE 1%/PHENYLEPHRINE 1.5% 0.8 ML SYRINGE ONE ×2 (08:40)
[2020-02-11] MEDS: PREDNISOLONE ACETATE 1% OPH SUSP 5 ML OS PRN ×2 (08:50)
[2020-02-11] MEDS: DORZOLAMIDE HCL 2%/TIMOLOL MALEAT 0.5% OPH SOLN 10 ML OS PRN ×2 (08:50)
--- NOTE | 2020-02-11 13:22 | Operative Report ---
Operative Report-[facility] Operative Report: DATE OF SURGERY: 02/11/2020 PREOPERATIVE DIAGNOSIS: Cataracts, left eye POSTOPERATIVE DIAGNOSIS: Cataract, left eye OPERATION: Cataract extraction with insertion of an IOL of the left eye. Intraocular Lens Model: [18.5 diopter SN 60 WF] Underwent surgery for difficulty seeing small print SURGEON: Reji Busch MD ANESTHESIA: Topical PROCEDURE: After obtaining appropriate consent, the patient's left eye was prepped and draped in a sterile fashion as well as the surgeon in the sterile manner and cataract surgery was started. First a paracentesis blade was used to make a side-port incision. Viscoelastic was used to inflate the anterior chamber. Next a 2.4 mm incision was made with a 2.4 mm blade, clear corneal temporarily. A continuous capsulorrhexis was made using a cystotome and Utrata forceps. Following this hydrodissection was carried out to make the lens fully loose and mobile and it was rotated 90 degrees. Following this, a divide and conquer technique was used to phacoemulsify the lens. The remaining cortex was removed with an irrigation/aspiration. Provisc was instilled into the capsular bag to inflate the bag.The intraocular lens was placed. The remaining viscoelastic material was removed with irrigation/aspiration. Following this, the incision was found to be watertight. Besivance and Cosopt was instilled into the eye and a protective shield was placed over the eye. The patient was returned to the postoperative recovery in a stable condition.
== END 2020-02-11 09:22 | disposition home or self-care (01) ==
LOC: SC 07:33
PROVIDERS: ATTEND Internal Medicine
DX: H25.812 Combined forms of age-related cataract, left eye (principal); H43.813 Vitreous degeneration, bilateral; H35.3121 Nonexudative age-related macular degeneration, left eye, early dry stage; E11.9 Type 2 diabetes mellitus without complications; M19.90 Unspecified osteoarthritis, unspecified site; F17.210 Nicotine dependence, cigarettes, uncomplicated; I10 Essential (primary) hypertension; Z85.038 Personal history of other malignant neoplasm of large intestine; Z79.84 Long term (current) use of oral hypoglycemic drugs; F41.9 Anxiety disorder, unspecified; K21.9 Gastro-esophageal reflux disease without esophagitis
CPT/HCPCS: 66984; 82962; V2632; J2250; J3490 ×3; A9270; J0171; J3010; J2704; 142

== ENCOUNTER 2020-03-03 08:09 | Day surgery (SDC) | payer MEDICARE, MEDICAID ==
[~2020-03-03 08:09] MED LIST changes: -CHONDR SU A NA/HYALUR INTRAOC KIT (SURGICARE) ONE; -EPINEPHRINE INJ/PF 1 MG/1 ML AMPULE ONE; -FENTANYL CITRATE INJ/PF 100 MCG/2 ML AMPUL ONE; +KETOROLAC TROMETHAMINE 0.45% 4 DROP/0.4 ML DROPERETTE OD PRN; -KETOROLAC TROMETHAMINE 0.45% 4 DROP/0.4 ML DROPERETTE OS PRN; -LIDOCAINE 1%/PHENYLEPHRINE 1.5% 0.8 ML SYRINGE ONE; -MIDAZOLAM 2 MG/2 ML INJ ONE
[2020-03-03] MEDS: BESIFLOXACIN HCL 0.6% OPH SUSP 5 ML BOTTLE OD PRN ×4 (08:43→09:49)
[2020-03-03] MEDS: CYCLOPENTOLATE 0.2%/PHENYLEPHRINE 1% OPH SOLN 2 ML OD PRN ×3 (08:43→09:09)
[2020-03-03] MEDS: TETRACAINE HCL 0.5% OPH SOLN 4 ML OD PRN ×5 (08:43→09:31)
[2020-03-03] MEDS: TROPICAMIDE 1% OPH SOLN 15 ML OD PRN ×3 (08:43→09:09)
[2020-03-03] MEDS ORDERED: MIDAZOLAM 2 MG/2 ML INJ ONE (09:14)
[2020-03-03] MEDS ORDERED: FENTANYL CITRATE INJ/PF 100 MCG/2 ML AMPUL ONE (09:14)
[2020-03-03] MEDS: LIDOCAINE 1%/PHENYLEPHRINE 1.5% 1 ML VIAL ONE ×2 (09:39)
[2020-03-03] MEDS: EPINEPHRINE INJ/PF 1 MG/1 ML AMPULE ONE ×2 (09:39)
[2020-03-03] MEDS: CHONDR SU A NA/HYALUR INTRAOC KIT (SURGICARE) ONE ×2 (09:39)
[2020-03-03] MEDS: PREDNISOLONE ACETATE 1% OPH SUSP 5 ML OD PRN ×2 (09:49)
[2020-03-03] MEDS: DORZOLAMIDE HCL 2%/TIMOLOL MALEAT 0.5% OPH SOLN 10 ML OD PRN ×2 (09:49)
--- NOTE | 2020-03-03 12:20 | Operative Report ---
Operative Report-[facility] Operative Report: DATE OF SURGERY: 03/03/2020 PREOPERATIVE DIAGNOSIS: Cataract, right eye POSTOPERATIVE DIAGNOSIS: Cataract, right eye OPERATION: Cataract extraction with insertion of an IOL of the right eye. Intraocular Lens Model: [18.5 diopter SN 60 WF] Underwent surgery for difficulty driving at night SURGEON: Reji Busch MD ANESTHESIA: Topical PROCEDURE: After obtaining appropriate consent, the patient's right eye was prepped and draped in a sterile fashion as well as the surgeon in the sterile manner and cataract surgery was started. First a paracentesis blade was used to make a side-port incision. Viscoelastic was used to inflate the anterior chamber. Next a 2.4 mm incision was made with a 2.4 mm blade, clear corneal temporarily. A continuous capsulorrhexis was made using a cystotome and Utrata forceps. Following this hydrodissection was carried out to make the miguel fully loose and mobile and it was rotated. Following this, a divide and conquer technique was used to phacoemulsify the miguel. The remaining cortex was removed with an irrigation/aspiration. Provisc was instilled into the capsular bag to inflate the bag. The intraocular lens was placed. The remaining viscoelastic material was removed with irrigation/aspiration. Following this, the incision was found to be watertight. Besivance and Cosopt was instilled into the eye and a protective shield was placed over the eye. The patient was reurned to the postoperative recovery in a stable condition.
== END 2020-03-03 10:25 ==
LOC: SC 08:09
PROVIDERS: ATTEND Internal Medicine
DX: H25.811 Combined forms of age-related cataract, right eye (principal); Z96.1 Presence of intraocular lens; E11.36 Type 2 diabetes mellitus with diabetic cataract; M19.90 Unspecified osteoarthritis, unspecified site; F17.210 Nicotine dependence, cigarettes, uncomplicated; Z79.84 Long term (current) use of oral hypoglycemic drugs; I10 Essential (primary) hypertension; I48.91 Unspecified atrial fibrillation
CPT/HCPCS: 66984; 82962; V2632; J2250; J3490 ×2; A9270; J0171; J3010; 142

== ENCOUNTER → 2020-03-10 | Outpatient (CLI) | payer MEDICARE, MEDICAID ==
[2020-03-10 13:19] LABS: ABSOLUTE EOSINOPHILS # (AUTO) 0.1 10^3/uL (0.0-0.6); ABSOLUTE LYMPHOCYTES (AUTO) 1.4 10^3/uL (0.5-4.7); ABSOLUTE NEUT (AUTO) 5.1 10^3/uL (1.7-8.2); BASOPHILS % (AUTO) 0.6 % (0-2); EOSINOPHILS % (AUTO) 1.8 % (0-6); HEMATOCRIT 33.5 % (37.9-51.0); HEMOGLOBIN 11.1 g/dL (13.5-17.0); LYMPHOCYTES % (AUTO) 18.7 % (13-45); MEAN CORPUSCULAR HEMOGLOBIN 27.4 pg (27.0-33.4); MEAN CORPUSCULAR HGB CONC 33.3 g/dL (32.0-36.0); MEAN CORPUSCULAR VOLUME 83 fl (80-97); MONOCYTES % (AUTO) 12.4 % (3-13); PLATELET COUNT 229 10^3/uL (150-450); RED BLOOD COUNT 4.05 10^6/uL (4.35-5.55); RED CELL DISTRIBUTION WIDTH 14.5 % (11.5-14.0); SEGMENTED NEUTROPHILS % (AUTO) 66.5 % (42-78); TOTAL CELLS COUNTED % (AUTO) 100 %; WHITE BLOOD COUNT 7.7 10^3/uL (4.0-10.5)
[2020-03-10 13:24] LABS: APPEARANCE,URINE CLEAR; BILIRUBIN,URINE NEGATIVE (NEGATIVE); COLOR,URINE YELLOW; GLUCOSE, URINE 150 mg/dL (NEGATIVE); KETONES,URINE NEGATIVE (NEGATIVE); PROTEIN,URINE NEGATIVE (NEGATIVE); URINE SPECIFIC GRAVITY 1.019; UROBILINOGEN,URINE NEGATIVE mg/dL (<2.0)
[2020-03-10 14:00] LABS: ALBUMIN 4.5 g/dL (3.5-5.0); ALKALINE PHOSPHATASE 95 U/L (38-126); ANION GAP 9 (5-19); ASPARTATE AMINO TRANSFERASE 33 U/L (17-59); BILIRUBIN,DIRECT 0.3 mg/dL (0.0-0.4); BILIRUBIN,TOTAL 0.5 mg/dL (0.2-1.3); BLOOD UREA NITROGEN 12 mg/dL (7-20); CALCIUM 9.7 mg/dL (8.4-10.2); CARBON DIOXIDE 28 mmol/L (22-30); CHLORIDE 94 mmol/L (98-107); GLUCOSE 183 mg/dL (75-110); POTASSIUM 5.5 mmol/L (3.6-5.0); TOTAL PROTEIN 7.2 g/dL (6.3-8.2)
[2020-03-10 14:11] LABS: ERYTHROCYTE SEDIMENTATION RATE 15 mm/hr (0-20)
== END ==
LOC: OD 11:42
PROVIDERS: ATTEND Orthopaedic Surgery
DX: Z01.810 Encounter for preprocedural cardiovascular examination (principal); Z01.812 Encounter for preprocedural laboratory examination; Z01.811 Encounter for preprocedural respiratory examination
CPT/HCPCS: 36415; 80053; 81001; 82306; 85025; 85652; 86140; 87070; 87086

== ENCOUNTER → 2020-03-16 | Outpatient (CLI) | payer MEDICARE, MEDICAID ==
--- NOTE | 2020-03-16 12:48 | RADIOLOGY REPORT (SQ) ---
EXAM DESCRIPTION: CHEST PA/LATERAL IMAGES COMPLETED DATE/TIME: 03/16/2020 12:39 pm REASON FOR STUDY: ENCOUNTER FOR PREPROCEDURAL RESPIRATORY EXAMINATION COMPARISON: 06/21/2018 EXAM PARAMETERS: NUMBER OF VIEWS: two views TECHNIQUE: Digital Frontal and Lateral radiographic views of the chest acquired. RADIATION DOSE: NA LIMITATIONS: none FINDINGS: LUNGS AND PLEURA: No opacities, masses or pneumothorax. No pleural effusion. MEDIASTINUM AND HILAR STRUCTURES: No masses or contour abnormalities. HEART AND VASCULAR STRUCTURES: Heart normal size. No evidence for failure. BONES: No acute findings. HARDWARE: None in the chest. OTHER: No other significant finding. IMPRESSION: NO SIGNIFICANT RADIOGRAPHIC FINDING IN THE CHEST. TECHNICAL DOCUMENTATION: JOB ID: [id number] [email or web address]- All Rights Reserved Reading location - IP/workstation name: [email or web address]
--- NOTE | 2020-03-16 12:51 | EKG REPORT ---
SEVERITY:- ABNORMAL ECG - SINUS ARRHYTHMIA, RATE 57-78 CONSIDER ANTEROSEPTAL INFARCT : Confirmed by: Gautam Peck MD 16-Mar-2020 12:49:55
== END ==
LOC: OD 12:02
PROVIDERS: ATTEND Orthopaedic Surgery
DX: Z01.810 Encounter for preprocedural cardiovascular examination (principal); Z01.811 Encounter for preprocedural respiratory examination; E11.9 Type 2 diabetes mellitus without complications
CPT/HCPCS: 36415; 71046; 83036; 93005; 93010

== ENCOUNTER → 2020-05-30 | Outpatient (CLI) | payer MEDICARE, MEDICAID ==
[2020-05-30 17:41] LABS: APPEARANCE,URINE SLIGHTLY-CLOUDY; BILIRUBIN,URINE NEGATIVE (NEGATIVE); COLOR,URINE YELLOW; GLUCOSE, URINE 150 mg/dL (NEGATIVE); KETONES,URINE NEGATIVE (NEGATIVE); LEUKOCYTE ESTERASE,URINE NEGATIVE (NEGATIVE); NITRITE,URINE NEGATIVE (NEGATIVE); PROTEIN,URINE NEGATIVE (NEGATIVE); URINE SPECIFIC GRAVITY 1.005; UROBILINOGEN,URINE NEGATIVE mg/dL (<2.0)
[2020-05-30 18:03] LABS: ALBUMIN 4.8 g/dL (3.5-5.0); ANION GAP 8 (5-19); BLOOD UREA NITROGEN 15 mg/dL (7-20); CALCIUM 10.6 mg/dL (8.4-10.2); CARBON DIOXIDE 31 mmol/L (22-30); CHLORIDE 96 mmol/L (98-107); GLUCOSE 174 mg/dL (75-110)
[2020-05-30 18:06] LABS: C-REACTIVE PROTEIN < 5.0 mg/L (<10.0)
== END ==
LOC: OD 16:31
PROVIDERS: ATTEND Orthopaedic Surgery
DX: Z01.812 Encounter for preprocedural laboratory examination (principal)
CPT/HCPCS: 36415; 80048; 81001; 82040; 82306; 85652; 86140; 86850; 86900; 86901; 87070